=== PATIENT | male | born 1930 | race Caucasian/White ===

== ENCOUNTER 2017-10-27 10:15 | Observation (INO) | payer OTHER ==
[2017-10-27 10:42] VITALS: BMI 20.2
--- NOTE | 2017-10-27 10:56 | PDOC ---
History of Present Illness <Jodie Hensley - Last Filed: 10/27/17 13:45> - General History Source: Patient, Family Exam Limitations: No Limitations - History of Present Illness Initial Comments: 10/27/17 11:50 The patient is an 87 year old male with past medical history of hypertension, hyperlipidemia, COPD,CHF (on 2.5 L O2 at home PRN and BiPAP), CAD s/p pacemaker , and MT who presents to the ED with complaints of worsening right lower back pain and shortness of breath for the past 4 days. He reports that on he sat down hard into a chair and developed a pain in his right lower back a few hours later. Since then the pain has worsened and is present when he walks. He reports the pain to be sharp, a 2/10 at rest but an 8/10 with ambulation. He reports taking tylenol and icing/heating the area without receiving any relief. Last dose of Tylenol was at 6 am today. He denies any numbness or tingling in BLE. The patient also complains of worsening shortness of breath with ambulation over the past few days as well. He reports using his nebulizers more frequently as well. Denies any orthopnea. He was admitted last month to the hospital for pneumonia. The patient denies any associated chest pain or palpitations. He reports a mild cough but denies any fevers or chills. Denies any urinary complaints. PCP: Dr. Virginie Mckeon: Dr. Raygoza Cardiology: [facility]. Biggs [facility] - Last Filed: 10/27/17 13:58> - General Chief Complaint: Pain Stated Complaint: SOB. HIP, AND BACK PAIN Time Seen by Provider: 10/27/17 10:56 Past History - Past Medical History Cancer: Yes (melanoma removed on nose 2014) Cardiac Disorders: Yes (pacemaker, heart attack) COPD: Yes (02 DEPENDENT 2L PRN.) HTN: Yes Hypercholesterolemia: Yes Seizures: Yes Thyroid Disease: Yes (hypo) - Surgical History Cardiac Surgery: Yes (pacemaker insertion) - Suicide/Smoking/Psychosocial Hx Smoking History: Never smoked Have you smoked in the past 12 months: No Information on smoking cessation initiated: No Hx Alcohol Use: No Drug/Substance Use Hx: No Substance Use Type: None Hx Substance Use Treatment: No <Jodie Hensley - Last Filed: 10/27/17 13:45> <Yuridia Gutierrez - Last Filed: 10/27/17 13:58> - Past Medical History Allergies/Adverse Reactions: Allergies Allergy/AdvReac Type Severity Reaction Status Date / Time No Known Allergies Allergy Verified 10/27/17 10:24 Home Medications: Ambulatory Orders Albuterol 0.083% Nebulizer Jaz [Ventolin 0.083% Nebulizer Soln -] 1 neb NEB QID PRN 08/30/17 Albuterol Sulfate Inhaler - [Ventolin HFA Inhaler -] 2 inh PO Q4H PRN 08/30/17 Aspirin [Aspirin EC] 81 mg PO DAILY 08/30/17 Febuxostat [Uloric -] 40 mg PO DAILY 08/30/17 Fluticasone Propionate [Flovent Hfa] 110 mcg IH DAILY 08/30/17 Levothyroxine [Synthroid -] 25 mcg PO DAILY 08/30/17 Tiotropium [place] [Spiriva] 1 inh PO DAILY 08/30/17 levETIRAcetam [Keppra -] 500 mg PO HS 08/30/17 Ascorbic Acid [Vitamin C -] 500 mg PO DAILY tablet 09/13/17 Carvedilol [Coreg -] 6.25 mg PO BID tablet 09/13/17 Docusate Sodium [Colace -] 100 mg PO BID capsule 09/13/17 Ferrous Sulfate [Feosol] 325 mg PO BIDWM ud 09/13/17 Nitroglycerin Patch [Nitro-Dur Patch -] 0.1 mg TD DAILY patch.td24 09/13/17 Polyvinyl Alcohol [Artificial Tears] 1 drop OU TID PRN drops 09/13/17 Torsemide [Demadex -] 20 mg PO DAILY tablet 09/13/17 Ascorbic Acid [Vitamin C] 500 mg PO DAILY 10/27/17 Mirtazapine [Remeron -] 15 mg PO HS 10/27/17 Review of Systems - Review of Systems Able to Perform ROS?: Yes Comments:: 10/27/17 11:50 GENERAL/CONSTITUTIONAL: No fever or chills. No weakness. HEAD, EYES, EARS, NOSE AND THROAT: No change in vision. No ear pain or discharge. No sore throat. CARDIOVASCULAR: (+) shortness of breath. No chest pain. RESPIRATORY: No cough, wheezing, or hemoptysis. GASTROINTESTINAL: No nausea, vomiting, diarrhea or constipation. GENITOURINARY: No dysuria, frequency, or change in urination. MUSCULOSKELETAL: (+) Right lower back pain. No neck pain. SKIN: No rash NEUROLOGIC: No headache, vertigo, loss of consciousness, or change in strength/ sensation. ENDOCRINE: No increased thirst. No abnormal weight change. HEMATOLOGIC/LYMPHATIC: No anemia, easy bleeding, or history of blood clots. ALLERGIC/IMMUNOLOGIC: No hives or skin allergy. All Other Systems: Reviewed and Negative <MattYuridia - Last Filed: 10/27/17 13:58> *Physical Exam - Vital Signs Last Vital Signs Temp Pulse Resp BP Pulse Ox 97.5 F L 86 18 140/70 95 10/27/17 10:19 10/27/17 10:19 10/27/17 10:19 10/27/17 10:19 10/27/17 10:19 <Jodie Hensley - Last Filed: 10/27/17 13:45> - Vital Signs Last Vital Signs Temp Pulse Resp BP Pulse Ox 97.5 F L 86 18 140/70 96 10/27/17 10:19 10/27/17 10:19 10/27/17 10:19 10/27/17 10:19 10/27/17 11:26 - Physical Exam Comments: 10/27/17 11:51 GENERAL: Awake, alert, and fully oriented, in no acute distress HEAD: No signs of trauma EYES: PERRLA, EOMI, sclera anicteric, conjunctiva clear ENT: Auricles normal inspection, hearing grossly normal, nares patent, oropharynx clear without exudates. Moist mucosa NECK: Normal ROM, supple, no lymphadenopathy, JVD, or masses LUNGS: (+) Mildly tachypneic. Breath sounds equal, clear to auscultation bilaterally. No wheezes, and no crackles HEART: (+) Grade II/ holosystolic murmur best heard at the apex. Regular rate and rhythm, normal S1 and S2, no rubs or gallops ABDOMEN: Soft, nontender, normoactive bowel sounds. No guarding, no rebound. No masses EXTREMITIES: Normal range of motion, no edema. No clubbing or cyanosis. No cords, erythema, or tenderness NEUROLOGICAL: Cranial nerves II through XII grossly intact. Normal speech, normal gait SKIN: Warm, Dry, normal turgor, no rashes or lesions noted. <Yuridia Gutierrez - Last Filed: 10/27/17 13:58> ED Treatment Course - LABORATORY CBC & Chemistry Diagram: 10/27/17 12:10 10/27/17 12:10 <Jodie Hensley - Last Filed: 10/27/17 13:45> - LABORATORY CBC & Chemistry Diagram: 10/27/17 12:10 10/27/17 12:10 - RADIOLOGY Radiograph Interpretation: 10/27/17 13:53 Thoracic spine x-ray as reviewed by Dr. Arriola reports mild degenerative changes and minimal wedging. There is sclerotic unfolded aorta and multi lead pacemaker. Lumbar spine x-ray as reviewed by Dr. Arriola reports degenerative changes, narrowing at L5-S1 intervertebral disc space, and vascular calcifications. Chest x-ray as reviewed by Dr. Arriola reports decreased pulmonary and pleural changes since 09/06/17 <Yuridia Gutierrez - Last Filed: 10/27/17 13:58> Medical Decision Making - Medical Decision Making 10/27/17 13:04 Pt presents to the ED complaining of a 4 day history of atraumatic back pain. Also complaining of worsening of his chronic shortness of breath, accompanied by RAUSCH but not orthopnea. 1. back pain: unlikely fracture, but given age will check xrays of the back and lumbar spine. Will check UA. 2. Shortness of breath: differential includes COPD exacerbation, CHF exacerbation, ACS. Will check CXR, EKG, cardiac labs. Will treat with nebs and steroids. Will likely observe for continued treatment of COPD exacerbation and rule out ACS. <Jodie Hensley - Last Filed: 10/27/17 13:45> - Medical Decision Making 10/27/17 13:39 Phone call [address] to Dr. Madden, covering physician for Dr. Rachel. Case was discussed. Call placed to Dr. Aquino, covering physician for Dr. Biggs. Case was discussed. <Yuridia Gutierrez - Last Filed: 10/27/17 13:58> *DC/Admit/Observation/Transfer - Discharge Dispostion Admit: Yes <Jodie Hensley - Last Filed: 10/27/17 13:45> - Attestations Scribe Attestion: 10/27/17 11:53 Documentation prepared by Yuridia Gutierrez, acting as medical collector for Jodie Hensley MD. <Yuridia Gutierrez - Last Filed: 10/27/17 13:58> Diagnosis at time of Disposition: CHF (congestive heart failure) Qualifiers: Heart failure type: combined systolic and diastolic Heart failure chronicity: acute on chronic Qualified Code(s): I50.43 - Acute on chronic combined systolic (congestive) and diastolic (congestive) heart failure - Discharge Dispostion Condition at time of disposition: Good - Referrals Referrals: Ruddy Rachel MD [Primary Care Provider] - - Patient Instructions - Post Discharge Activity
[2017-10-27] MEDS ORDERED: predniSONE 20 MG TABLET (UD) PO ONE (11:46)
[2017-10-27] MEDS: ALBUTEROL SO4 2.5/IPRATROPIUM 0.5 INH SOL 3 ML VIAL.NEB. NEB SCH ×4 (12:01→12:58)
[2017-10-27] MEDS ORDERED: predniSONE 20 MG TABLET (UD) ONE (12:05)
[2017-10-27] MEDS ORDERED: ALBUTEROL SO4 2.5/IPRATROPIUM 0.5 INH SOL 3 ML VIAL.NEB. NEB ONE (12:05)
[2017-10-27 12:20] LABS: BASO % 0.9 % (0-2.0); EOS % 2.5 % (0-4.5); HEMATOCRIT 31.5 % (35.4-49); HEMOGLOBIN 10.6 GM/dL (11.7-16.9); LYMPH % 12.2 % (8-40); MCH 32.3 pg (25.7-33.7); MCHC 33.6 g/dl (32.0-35.9); MEAN CELL VOLUME 96.2 fl (80-96); MEAN PLT VOLUME 10.1 fl (7.5-11.1); MONO % 10.1 % (3.8-10.2); NEUT % 74.3 % (42.8-82.8); PLATELET COUNT 157 K/MM3 (134-434); RBC 3.28 M/mm3 (4.00-5.60); WHITE BLOOD COUNT 7.5 K/mm3 (4.0-10.0)
[2017-10-27 12:45] LABS: ALBUMIN 3.2 g/dl (3.4-5.0); ANION GAP 6 (8-16); BILIRUBIN,TOTAL 0.4 mg/dL (0.2-1.0); BLOOD UREA NITROGEN 35 mg/dL (7-18); CALCIUM 8.7 mg/dL (8.5-10.1); CHLORIDE 105 mmol/L (98-107); CO2 32 mmol/L (21-32); CREATININE 2.3 mg/dL (0.7-1.3); GLUCOSE,RANDOM 130 mg/dL (74-106); SGPT/ALT 12 U/L (12-78); SODIUM 143 mmol/L (136-145); TOT PROT 7.7 g/dl (6.4-8.2)
[2017-10-27 12:48] LABS: ALK PHOS 78 U/L (45-117); N-TERMINAL BNP 12843.76 pg/ml (5-450)
[2017-10-27 12:53] LABS: POTASSIUM 4.6 mmol/L (3.5-5.1); SGOT/AST 23 U/L (15-37)
[2017-10-27] MEDS ORDERED: FUROSEMIDE 40 MG/4 ML INJECTABLE VIAL IVPUSH ONE (13:42)
[2017-10-27] MEDS ORDERED: ARTIFICIAL TEARS (POLYVINYL ALCOHOL 1.4%) OPTH DROPS OU PRN (13:44)
[2017-10-27] MEDS ORDERED: ALBUTEROL SO4 18 GM HFA INHALER IH PRN (13:44)
[2017-10-27] MEDS ORDERED: ALBUTEROL SO4 0.083% IH SOL 2.5 MG/3 ML VIAL.NEB. NEB PRN (13:44)
[2017-10-27] MEDS ORDERED: ACETAMINOPHEN 1000 MG/100 ML VIAL (NON FORMULARY) IVPB ONE (13:52)
[2017-10-27] MEDS ORDERED: FUROSEMIDE 40 MG/4 ML INJECTABLE VIAL ONE (13:54)
--- NOTE | 2017-10-27 14:28 | EKG ---
Test Reason : Blood Pressure : / mmHG Vent. Rate : 082 BPM Atrial Rate : 079 BPM P-R Int : 000 ms QRS Dur : 142 ms QT Int : 426 ms P-R-T Axes : 000 -07 035 degrees QTc Int : 497 ms Ventricular-paced rhythm Biventricular pacemaker detected ABNORMAL ECG WHEN COMPARED WITH ECG OF 04-SEP-2017 00:05, VENT. RATE HAS DECREASED BY 10 BPM Confirmed by MD Mac, Karl ([id number]) on 10/27/2017 2:28:16 PM Referred By: Confirmed By:Karl Watts MD
[2017-10-27] MEDS ORDERED: morphine CARPU-JECT 2 MG/1 ML DISP.SYRIN IVPUSH ONE (14:54)
[2017-10-27] MEDS ORDERED: morphine SULFATE 4 MG/ML VIAL ONE ×2 (15:19→17:51)
[2017-10-27] MEDS ORDERED: morphine SULFATE 4 MG/ML VIAL IVPUSH ONE ×2 (16:52→18:05)
[2017-10-27] MEDS ORDERED: morphine CARPU-JECT 4 MG/1 ML DISP.SYRIN IVPUSH ONE (18:05)
[2017-10-27] MEDS: MOMETASONE FUROATE 220 MCG/IH INHALER IH SCH (22:33)
[2017-10-27] MEDS: DOCUSATE SODIUM 100 MG CAPSULE (FP) PO SCH (22:33)
[2017-10-27] MEDS: CARVEDILOL 6.25 MG TABLET (FP) PO SCH (22:33)
[2017-10-27] MEDS: levETIRAcetam 500 MG TABLET (FP) PO SCH (22:34)
[2017-10-27] MEDS: MIRTAZAPINE 15 MG TABLET (FP) PO SCH (22:34)
--- NOTE | 2017-10-27 23:57 | HP ---
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 - Past Medical History Cardiovascular: Yes: AFIB, HTN, Hyperlipdemia Renal/: Yes: Renal Inusuff Heme/Onc: Yes: Anemia Endocrine: Yes: Hypothyroidism - Past Surgical History Past Surgical History: Yes: Permanent Pacemaker - Smoking History Smoking history: Never smoked Have you smoked in the past 12 months: No - Alcohol/Substance Use Hx Alcohol Use: No Home Medications - Allergies Allergies/Adverse Reactions: Allergies Allergy/AdvReac Type Severity Reaction Status Date / Time thiopental Allergy Mild Verified 10/28/17 07:02 sodium pentothal Allergy Mild Uncoded 10/27/17 22:30 - Home Medications Home Medications: Ambulatory Orders Albuterol 0.083% Nebulizer Jaz [Ventolin 0.083% Nebulizer Soln -] 1 neb NEB QID PRN 08/30/17 Albuterol Sulfate Inhaler - [Ventolin HFA Inhaler -] 2 inh PO Q4H PRN 08/30/17 Aspirin [Aspirin EC] 81 mg PO DAILY 08/30/17 Febuxostat [Uloric -] 40 mg PO DAILY 08/30/17 Fluticasone Propionate [Flovent Hfa] 110 mcg IH DAILY 08/30/17 Levothyroxine [Synthroid -] 25 mcg PO DAILY 08/30/17 Tiotropium [place] [Spiriva] 1 inh PO DAILY 08/30/17 levETIRAcetam [Keppra -] 500 mg PO HS 08/30/17 Ascorbic Acid [Vitamin C -] 500 mg PO DAILY tablet 09/13/17 Carvedilol [Coreg -] 6.25 mg PO BID tablet 09/13/17 Docusate Sodium [Colace -] 100 mg PO BID capsule 09/13/17 Ferrous Sulfate [Feosol] 325 mg PO BIDWM ud 09/13/17 Nitroglycerin Patch [Nitro-Dur Patch -] 0.1 mg TD DAILY patch.td24 09/13/17 Polyvinyl Alcohol [Artificial Tears] 1 drop OU TID PRN drops 09/13/17 Torsemide [Demadex -] 20 mg PO DAILY tablet 09/13/17 Ascorbic Acid [Vitamin C] 500 mg PO DAILY 10/27/17 Mirtazapine [Remeron -] 15 mg PO HS 10/27/17 Family Disease History - Family Disease History Family History: Unremarkable Physical Examination Vital Signs: Vital Signs Temperature 97.4 F L 10/27/17 18:33 Pulse Rate 100 H 10/27/17 18:33 Respiratory Rate 28 H 10/27/17 18:33 Blood Pressure 155/105 10/27/17 18:33 O2 Sat by Pulse Oximetry (%) 93 L 10/27/17 18:33 Elderly man sick looking C/O Rt Gluteal area pain HEENT: Mm dry, mild anemia, PERRLA, EOMI NECK; JVD + CHEST: B/L Crepts CVS; S1S2 R ABD: No distention, non tender EXT: Alirio afeet + Rt Gluteal area tenderness [employer]: aler, non focal, no interval changes Labs: CBC, BMP 10/27/17 12:10 10/27/17 12:10 Imaging - Results X-ray: Report Reviewed (Hip no fractue Lumbar Spine: No fructure or Lytic lesion Thoracic spin no lytic lesion) EKG: Report Reviewed (Paced rhythma) Problem List - Problems (1) Heart failure, systolic, with acute decompensation Assessment/Plan: Present with worsening SOB and chest congestion, elevated BNP will resume all home meds possibly stress induced F/U cardiology recommondation, low salt diet Daily wt Code(s): I50.23 - ACUTE ON CHRONIC SYSTOLIC (CONGESTIVE) HEART FAILURE (2) Acute on chronic kidney failure Assessment/Plan: Base line CKD present with worsening renal function most likely due to Cardio renal syndrom Code(s): N17.9 - ACUTE KIDNEY FAILURE, UNSPECIFIED; N18.9 - CHRONIC KIDNEY DISEASE, UNSPECIFIED (3) HTN (hypertension) Assessment/Plan: Well controlled cont all home meds Code(s): I10 - ESSENTIAL (PRIMARY) HYPERTENSION Qualifiers: (4) Ischemic cardiomyopathy Assessment/Plan: chronic recent ECHO shows no chnage in EF Code(s): I25.5 - ISCHEMIC CARDIOMYOPATHY (5) Dehydration Assessment/Plan: recived IV Hydration in Ed F/U BMP and Code(s): E86.0 - DEHYDRATION (6) CAD (coronary artery disease) Code(s): I25.10 - ATHSCL HEART DISEASE OF [place] CORONARY ARTERY W/O ANG PCTRS Qualifiers: [place] vs. transplanted heart: three affiliated heart Associated angina: without angina (7) Sick sinus syndrome Assessment/Plan: S/PPacemaker intergayed during last Hospitalization Code(s): I49.5 - SICK SINUS SYNDROME (8) Hip pain, right Assessment/Plan: Cont Tylenol for pain no fracture Code(s): M25.551 - PAIN IN RIGHT HIP
[2017-10-28] MEDS ORDERED: PT OWN MED DRAWER 7, Y5N ONE ×3 (05:57→09:23)
[2017-10-28] MEDS: LEVOTHYROXINE NA 25 MCG TABLET (FP) PO SCH (06:04)
[2017-10-28 07:17] LABS: BASO % 0.1 % (0-2.0); HEMATOCRIT 32.9 % (35.4-49); HEMOGLOBIN 11.2 GM/dL (11.7-16.9); MCH 32.6 pg (25.7-33.7); MEAN CELL VOLUME 95.9 fl (80-96); MONO % 4.3 % (3.8-10.2); NEUT % 84.6 % (42.8-82.8); PLATELET COUNT 169 K/MM3 (134-434); RBC 3.43 M/mm3 (4.00-5.60); RDW 15.7 % (11.9-15.9); WHITE BLOOD COUNT 5.5 K/mm3 (4.0-10.0)
[2017-10-28 07:19] LABS: ALBUMIN 3.6 g/dl (3.4-5.0); ANION GAP 10 (8-16); BLOOD UREA NITROGEN 40 mg/dL (7-18); CALCIUM 9.3 mg/dL (8.5-10.1); CHLORIDE 99 mmol/L (98-107); CO2 33 mmol/L (21-32); GLUCOSE,RANDOM 134 mg/dL (74-106); POTASSIUM 4.8 mmol/L (3.5-5.1); SODIUM 142 mmol/L (136-145)
[2017-10-28 07:22] LABS: ALK PHOS 77 U/L (45-117); BILIRUBIN,TOTAL 0.5 mg/dL (0.2-1.0); CREATININE 2.4 mg/dL (0.7-1.3); SGOT/AST 20 U/L (15-37); SGPT/ALT 13 U/L (12-78); TOT PROT 8.1 g/dl (6.4-8.2)
[2017-10-28] MEDS ORDERED: morphine SULFATE 4 MG/ML VIAL ONE (09:40)
[2017-10-28] MEDS ORDERED: morphine CARPU-JECT 4 MG/1 ML DISP.SYRIN IVPB PRN (09:49)
--- NOTE | 2017-10-28 09:49 | CON.CARD ---
Consult Consult Specialty:: Cardiology - Past Medical History Cardio/Vascular: Yes: AFIB, HTN, Hyperlipdemia Renal/: Yes: Renal Inusuff Endocrine: Yes: Hypothyroidism - Past Surgical History Past Surgical History: Yes: Permanent Pacemaker - Alcohol/Substance Use Hx Alcohol Use: No - Smoking History Smoking history: Never smoked Have you smoked in the past 12 months: No If you are a former smoker, when did you quit?: 40 Years ago Home Medications - Allergies Allergies/Adverse Reactions: Allergies Allergy/AdvReac Type Severity Reaction Status Date / Time thiopental Allergy Mild Verified 10/28/17 07:02 sodium pentothal Allergy Mild Uncoded 10/27/17 22:30 - Home Medications Home Medications: Ambulatory Orders Albuterol 0.083% Nebulizer Jaz [Ventolin 0.083% Nebulizer Soln -] 1 neb NEB QID PRN 08/30/17 Albuterol Sulfate Inhaler - [Ventolin HFA Inhaler -] 2 inh PO Q4H PRN 08/30/17 Aspirin [Aspirin EC] 81 mg PO DAILY 08/30/17 Febuxostat [Uloric -] 40 mg PO DAILY 08/30/17 Fluticasone Propionate [Flovent Hfa] 110 mcg IH DAILY 08/30/17 Levothyroxine [Synthroid -] 25 mcg PO DAILY 08/30/17 Tiotropium [place] [Spiriva] 1 inh PO DAILY 08/30/17 levETIRAcetam [Keppra -] 500 mg PO HS 08/30/17 Ascorbic Acid [Vitamin C -] 500 mg PO DAILY tablet 09/13/17 Carvedilol [Coreg -] 6.25 mg PO BID tablet 09/13/17 Docusate Sodium [Colace -] 100 mg PO BID capsule 09/13/17 Ferrous Sulfate [Feosol] 325 mg PO BIDWM ud 09/13/17 Nitroglycerin Patch [Nitro-Dur Patch -] 0.1 mg TD DAILY patch.td24 09/13/17 Polyvinyl Alcohol [Artificial Tears] 1 drop OU TID PRN drops 09/13/17 Torsemide [Demadex -] 20 mg PO DAILY tablet 09/13/17 Ascorbic Acid [Vitamin C] 500 mg PO DAILY 10/27/17 Mirtazapine [Remeron -] 15 mg PO HS 05/06/18 Vital Signs: Vital Signs Temperature 97.7 F 10/28/17 06:00 Pulse Rate 91 H 10/28/17 06:00 Respiratory Rate 20 10/28/17 06:00 Blood Pressure 136/82 10/28/17 06:00 O2 Sat by Pulse Oximetry (%) 98 10/28/17 03:35 - Other Data Labs, Other Data: CBC, BMP 10/28/17 06:30 10/28/17 06:30 Troponin, BNP 10/27/17 10/27/17 12:10 18:10 Troponin I 0.02 D 0.02 B-Natriuretic Peptide 58369.76 H Troponin, BNP 10/27/17 10/27/17 12:10 18:10 Troponin I 0.02 D 0.02 B-Natriuretic Peptide 73564.76 H Assessment/Plan 08/05/2017 Moderately decreased LVEF 40-45%, pacer wire, severe LAE, mod eccentric MR, mild anterior MVP, mod-severe TR 1. Acute on chronic hypoxic, hypercapneic respiratory failure referable to 2. Acute on chronic LV systolic failure with subendocardial ischemia resolving 3. Acute on CKD referable to renal hypoperfusion improving 4. CAD post SD angina pectoris 5. Persistent atrial fibrillation [id number] score of 5 on no A/C 6. Sick sinus syndrome post PPM 7. Hypertension history, tends to be hypotensive at baseline on medical therapy 8. Hypercholesterolemia 9. Hypothyroidism 10. Advanced O2-dependent COPD/LLL pneumonia, RUL pulm nodule 11. Anemia/thrombocytopenia 12. Abnl LFTs downtrending PLAN: 1. Continue oral diuresis (Demadex 20 qd) with monitor diuretic response, renal function and electrolytes, O2 as needed to maintain saO2>90% 2. Continue Coreg 6.25 bid, resume Entresto 24/46 bid pending stabilization of renal function and resolution of hyperkalemia 3. Continue ASA 81 qd, although ideally should be A/C but high risk patient as deemed in the past, recurrent falls/thrombocytopenia 4. Completed empiric antibiotic course as per the ID service, trend LFTs, hold Lipitor until LFTs normalize 5. DVT prophylaxis, BD as needed, PT
[2017-10-28] MEDS ORDERED: PATIENT'S OWN MEDICATION (NON-FORMULARY) (Ascorbic Acid [Vitamin C] 500 MG) PO SCH (10:00)
[2017-10-28] MEDS ORDERED: PATIENT'S OWN MEDICATION (NON-FORMULARY) (Fluticasone Propionate [Flovent Hfa] 110 MCG) IH SCH (10:00)
[2017-10-28] MEDS ORDERED: ASCORBIC ACID 500 MG TABLET (FP) PO SCH (10:00)
[2017-10-28] MEDS ORDERED: oxyCODONE HCL 5 MG TABLET PO PRN (10:11)
--- NOTE | 2017-10-28 10:19 | PN ---
Progress Note, Physician Chief Complaint: Pt sitting in bed in no acute distress. continues to report severe left hip- sacral pain. reports he sat a little firmly on his back at home. denies any falls/trauma. Denies any worsening sob at the moment. On o2. Denies any chest pain, n/v/d - Current Medication List Current Medications: Active Medications Acetaminophen (Tylenol -) 650 mg PO Q6H PRN PRN Reason: PAIN LEVEL 1-5 Albuterol Sulfate (Ventolin 0.083% Nebulizer Soln -) 1 amp NEB Q6H PRN PRN Reason: sob Last Admin: 10/28/17 08:18 Dose: 1 amp Albuterol Sulfate (Ventolin Hfa Inhaler -) 2 puff IH Q4H PRN PRN Reason: sob Artificial Tears (Artificial Tears) 1 drop OU Q8H PRN PRN Reason: DRY EYES Ascorbic Acid (Vitamin C -) 500 mg PO DAILY [facility] Aspirin (Ecotrin -) 81 mg PO DAILY [facility] Carvedilol (Coreg -) 6.25 mg PO BID [facility] Last Admin: 10/27/17 22:33 Dose: 6.25 mg Docusate Sodium (Colace -) 100 mg PO BID [facility] Last Admin: 10/27/17 22:33 Dose: 100 mg Febuxostat (Uloric -) 40 mg PO DAILY [facility] Ferrous Sulfate (Feosol -) 325 mg PO BIDWM [facility] Levetiracetam (Keppra -) 500 mg PO [facility] Last Admin: 10/27/17 22:34 Dose: 500 mg Levothyroxine Sodium (Synthroid -) 25 mcg PO [facility] Last Admin: 10/28/17 06:04 Dose: 25 mcg Mirtazapine (Remeron -) 15 mg PO [facility] Last Admin: 10/27/17 22:34 Dose: 15 mg Mometasone Furoate (Asmanex 220mcg -) 1 puff IH [facility] Last Admin: 10/27/17 22:33 Dose: 220 mcg Nitroglycerin (Nitro-Dur Patch -) 0.1 mg TD DAILY [facility] Oxycodone HCl (Roxicodone -) 5 mg PO Q6H PRN PRN Reason: PAIN LEVEL 6-10 Polyethylene Glycol (Miralax (For Daily Use) -) 17 gm PO DAILY [facility] Senna (Senna -) 2 tab PO HS JOSE ALFREDO Tiotropium [place] (Spiriva -) 1 puff IH DAILY JOSE ALFREDO Torsemide (Demadex -) 20 mg PO DAILY JOSE ALFREDO - Objective Vital Signs: Vital Signs Temperature 97.7 F 10/28/17 06:00 Pulse Rate 91 H 10/28/17 06:00 Respiratory Rate 20 10/28/17 06:00 Blood Pressure 136/82 10/28/17 06:00 O2 Sat by Pulse Oximetry (%) 98 10/28/17 03:35 Constitutional: Yes: No Distress, Thin Cardiovascular: Yes: Regular Rate and Rhythm, Murmur Respiratory: Yes: Regular, Diminished, On Nasal O2, SOB (at baseline). No: Accessory Muscle Use, Tachypnea, Wheezes Gastrointestinal: Yes: WNL, Normal Bowel Sounds, Soft. No: Distention, Tenderness Genitourinary: Yes: WNL Edema: No Neurological: Yes: WNL, Alert, Oriented Psychiatric: Yes: WNL, Alert, Oriented Labs: CBC, BMP 10/28/17 06:30 10/28/17 06:30 Problem List - Problems (1) Left hip pain Code(s): M25.552 - PAIN IN LEFT HIP (2) Afib Code(s): I48.91 - UNSPECIFIED ATRIAL FIBRILLATION Qualifiers: Atrial fibrillation type: persistent Qualified Code(s): I48.1 - Persistent atrial fibrillation (3) Anemia Code(s): D64.9 - ANEMIA, UNSPECIFIED Qualifiers: Anemia type: unspecified type Qualified Code(s): D64.9 - Anemia, unspecified (4) CAD (coronary artery disease) Code(s): I25.10 - ATHSCL HEART DISEASE OF [place] CORONARY ARTERY W/O ANG PCTRS Qualifiers: [place] vs. transplanted heart: [place] heart Associated angina: without angina (5) CHF (congestive heart failure), NYHA class III Code(s): I50.9 - HEART FAILURE, UNSPECIFIED Qualifiers: Congestive heart failure type: combined Congestive heart failure chronicity : acute on chronic Qualified Code(s): I50.43 - Acute on chronic combined systolic (congestive) and diastolic (congestive) heart failure (6) CKD (chronic kidney disease) Code(s): N18.9 - CHRONIC KIDNEY DISEASE, UNSPECIFIED Qualifiers: Chronic kidney disease stage: stage 4 (severe) Qualified Code(s): N18.4 - Chronic kidney disease, stage 4 (severe) (7) COPD (chronic obstructive pulmonary disease) Code(s): J44.9 - CHRONIC OBSTRUCTIVE PULMONARY DISEASE, UNSPECIFIED Qualifiers: COPD type: emphysema (8) HTN (hypertension) Code(s): I10 - ESSENTIAL (PRIMARY) HYPERTENSION Qualifiers: (9) Hyperlipidemia Code(s): E78.5 - HYPERLIPIDEMIA, UNSPECIFIED (10) Hypothyroidism Code(s): E03.9 - HYPOTHYROIDISM, UNSPECIFIED Qualifiers: Hypothyroidism type: unspecified Qualified Code(s): E03.9 - Hypothyroidism , unspecified (11) Pacemaker Code(s): Z95.0 - PRESENCE OF CARDIAC PACEMAKER (12) Pulmonary nodule Code(s): R91.1 - SOLITARY PULMONARY NODULE (13) Sick sinus syndrome Code(s): I49.5 - SICK SINUS SYNDROME Assessment/Plan (1) Left hip pain Assessment/Plan: pt still reports increased left posterior sacral- hip pain lumbar/thoracic/hip xray without acute findings bowel regimen tylenol/roxicodone prn PT ordered ortho consulted Code(s): M25.552 - PAIN IN LEFT HIP (2) COPD (chronic obstructive pulmonary disease) Assessment/Plan: chronic home dependent on O2 pt reports increased sob upon ambulation secondary to left hip pain pulm consult appreciated Code(s): J44.9 - CHRONIC OBSTRUCTIVE PULMONARY DISEASE, UNSPECIFIED Qualifiers: COPD type: emphysema (3) CHF (congestive heart failure) Assessment/Plan: NYHA class 2, euvolemic does not appear to be in acute exacerbation congestive changes on chest xray- however better than prev admission continue torsemide cardiology following Code(s): I50.9 - HEART FAILURE, UNSPECIFIED Qualifiers: Heart failure type: combined systolic and diastolic Heart failure chronicity: chronic Qualified Code(s): I50.42 - Chronic combined systolic ( congestive) and diastolic (congestive) heart failure (4) Hypothyroidism Assessment/Plan: continue synthroid Code(s): E03.9 - HYPOTHYROIDISM, UNSPECIFIED Qualifiers: Hypothyroidism type: unspecified Qualified Code(s): E03.9 - Hypothyroidism , unspecified (5) CKD (chronic kidney disease) Assessment/Plan: at baseline monitor Code(s): N18.9 - CHRONIC KIDNEY DISEASE, UNSPECIFIED Qualifiers: Chronic kidney disease stage: stage 4 (severe) Qualified Code(s): N18.4 - Chronic kidney disease, stage 4 (severe) (6) Sick sinus syndrome Assessment/Plan: s/p PPM Code(s): I49.5 - SICK SINUS SYNDROME (7) CAD (coronary artery disease) Assessment/Plan: history of NM/angina s/p PPM cardiology following Code(s): I25.10 - ATHSCL HEART DISEASE OF [place] CORONARY ARTERY W/O ANG PCTRS Qualifiers: [place] vs. transplanted heart: [place] heart Associated angina: without angina (8) Afib Assessment/Plan: rate controlled continue carvedilol, Asa CHADvasc score 5, no AC Code(s): I48.91 - UNSPECIFIED ATRIAL FIBRILLATION Qualifiers: Atrial fibrillation type: persistent Qualified Code(s): I48.1 - Persistent atrial fibrillation (9) Anemia Assessment/Plan: secondary to ckd h/h stable Code(s): D64.9 - ANEMIA, UNSPECIFIED Qualifiers: Anemia type: unspecified type Qualified Code(s): D64.9 - Anemia, unspecified (10) HTN (hypertension) Assessment/Plan: controlled continue carvedilol Code(s): I10 - ESSENTIAL (PRIMARY) HYPERTENSION Qualifiers: Hypertension type: essential hypertension Qualified Code(s): I10 - Essential (primary) hypertension (11) Hyperlipidemia Assessment/Plan: continue lipitor Code(s): E78.5 - HYPERLIPIDEMIA, UNSPECIFIED (12) Pulmonary nodule Assessment/Plan: RUL nodule Code(s): R91.1 - SOLITARY PULMONARY NODULE Dispo: Home with services
[2017-10-28] MEDS: FERROUS SO4 325 MG TABLET (FP) PO SCH (10:20)
[2017-10-28] MEDS: DOCUSATE SODIUM 100 MG CAPSULE (FP) PO SCH ×2 (10:20→21:35)
[2017-10-28] MEDS: CARVEDILOL 6.25 MG TABLET (FP) PO SCH ×2 (10:20→21:35)
--- NOTE | 2017-10-28 10:34 | CON.CARD ---
Consult Consult Specialty:: Cardiology Referred by:: Pateint of Dr. Ruddy Rachel Reason for Consultation:: Cardiac evaluation - History of Present Illness Chief Complaint: Shortness of breath History of Present Illness: Patient is an 87 year old male well known to our service (sees Dr. Na Biggs) with underlying history of atrial fibrillation, CAD post LA, sick sinus syndrome post PPM, COPD on home O2, gout and class II-III NYHA classification LV systolic heart failure who presents with left hip pain and shortness of breath with exertion. He was recently in the hospital with dyspnea and generalized weakness. Currently he is awake and alert. He denies fever or chills. He denies chest pain or palpitations. He denies nausea, vomiting, diarrhea or abdominal pain. Denies headache or lightheadedness. He complained of shortness of breath on exertion and blood work reveals elevated BNP with usual elevation of creatinine. He was given IV Furosemide in the ED. He feel better this am. - History Source History Provided By: Patient, Medical Record Limitations to Obtaining History: No Limitations - Past Medical History Cardio/Vascular: Yes: AFIB, CAD, CHF, HTN, Hyperlipdemia, LA Pulmonary: Yes: COPD Renal/: Yes: Renal Inusuff Endocrine: Yes: Hypothyroidism - Past Surgical History Past Surgical History: Yes: Permanent Pacemaker - Alcohol/Substance Use Hx Alcohol Use: No - Smoking History Smoking history: Never smoked Have you smoked in the past 12 months: No If you are a former smoker, when did you quit?: 40 Years ago Home Medications - Allergies Allergies/Adverse Reactions: Allergies Allergy/AdvReac Type Severity Reaction Status Date / Time thiopental Allergy Mild Verified 10/28/17 07:02 sodium pentothal Allergy Mild Uncoded 10/27/17 22:30 - Home Medications Home Medications: Ambulatory Orders Albuterol 0.083% Nebulizer Jaz [Ventolin 0.083% Nebulizer Soln -] 1 neb NEB QID PRN 08/30/17 Albuterol Sulfate Inhaler - [Ventolin HFA Inhaler -] 2 inh PO Q4H PRN 08/30/17 Aspirin [Aspirin EC] 81 mg PO DAILY 08/30/17 Febuxostat [Uloric -] 40 mg PO DAILY 08/30/17 Fluticasone Propionate [Flovent Hfa] 110 mcg IH DAILY 08/30/17 Levothyroxine [Synthroid -] 25 mcg PO DAILY 08/30/17 Tiotropium [place] [Spiriva] 1 inh PO DAILY 08/30/17 levETIRAcetam [Keppra -] 500 mg PO HS 08/30/17 Ascorbic Acid [Vitamin C -] 500 mg PO DAILY tablet 09/13/17 Carvedilol [Coreg -] 6.25 mg PO BID tablet 09/13/17 Docusate Sodium [Colace -] 100 mg PO BID capsule 09/13/17 Ferrous Sulfate [Feosol] 325 mg PO BIDWM ud 09/13/17 Nitroglycerin Patch [Nitro-Dur Patch -] 0.1 mg TD DAILY patch.[id number] 09/13/17 Polyvinyl Alcohol [Artificial Tears] 1 drop OU TID PRN drops 09/13/17 Torsemide [Demadex -] 20 mg PO DAILY tablet 09/13/17 Ascorbic Acid [Vitamin C] 500 mg PO DAILY 10/27/17 Mirtazapine [Remeron -] 15 mg PO HS 10/27/17 Review of Systems - Review of Systems Constitutional: denies: Chills, Fever Cardiovascular: reports: Shortness of Breath. denies: Chest Pain, Palpitations Respiratory: reports: SOB, SOB on Exertion. denies: Cough, Hemoptysis, Orthopnea, PND, Wheezing Gastrointestinal: denies: Abdominal Pain, Constipation, Diarrhea, Melena, Nausea , Rectal Bleeding, Vomiting Neurological: reports: Weakness. denies: Dizziness, Headache, Seizure, Syncope , Unsteady Gait Vital Signs: Vital Signs Temperature 97.7 F 10/28/17 06:00 Pulse Rate 91 H 10/28/17 06:00 Respiratory Rate 20 10/28/17 06:00 Blood Pressure 136/82 10/28/17 06:00 O2 Sat by Pulse Oximetry (%) 98 10/28/17 03:35 HENT: Yes: Atraumatic Neck: Yes: Supple Respiratory: Yes: Diminished Gastrointestinal: Yes: Normal Bowel Sounds, Soft. No: Tenderness Cardiovascular: Yes: Pulse Irregular JVD: No Carotid Bruit: No PMI: Non-Displaced Heart Sounds: Yes: S1, S2. No: Gallop Murmur: Yes: Systolic Murmur, Grade 1 Edema: No - Other Data Labs, Other Data: CBC, BMP 10/28/17 06:30 05/07/18 06:30 Troponin, BNP 10/27/17 10/27/17 12:10 18:10 Troponin I 0.02 D 0.02 B-Natriuretic Peptide 74697.76 H Laboratory Results - last 24 hr 10/27/17 10/27/17 10/27/17 12:10 12:10 18:10 WBC 7.5 RBC 3.28 L Hgb 10.6 L D Hct 31.5 L MCV 96.2 H MCH 32.3 MCHC 33.6 RDW 16.0 H D Plt Count 157 MPV 10.1 Neutrophils % 74.3 Lymphocytes % 12.2 Monocytes % 10.1 Eosinophils % 2.5 Basophils % 0.9 Sodium 143 Potassium 4.6 Chloride 105 Carbon Dioxide 32 Anion Gap 6 L BUN 35 H D Creatinine 2.3 H Creat Clearance w eGFR 27.10 Random Glucose 130 H D Calcium 8.7 Total Bilirubin 0.4 D AST 23 D ALT 12 D Alkaline Phosphatase 78 Creatine Kinase 47 Troponin I 0.02 D 0.02 B-Natriuretic Peptide 61864.76 H Total Protein 7.7 Albumin 3.2 L 10/28/17 10/28/17 06:30 06:30 WBC 5.5 RBC 3.43 L Hgb 11.2 L Hct 32.9 L MCV 95.9 MCH 32.6 MCHC 34.0 RDW 15.7 Plt Count 169 MPV 10.0 Neutrophils % 84.6 H Lymphocytes % 11.0 Monocytes % 4.3 Eosinophils % 0.0 D Basophils % 0.1 Sodium 142 Potassium 4.8 Chloride 99 Carbon Dioxide 33 H Anion Gap 10 BUN 40 H Creatinine 2.4 H Creat Clearance w eGFR 25.80 Random Glucose 134 H Calcium 9.3 Total Bilirubin 0.5 D AST 20 ALT 13 Alkaline Phosphatase 77 Creatine Kinase Troponin I B-Natriuretic Peptide Total Protein 8.1 Albumin 3.6 Ventricular paced rhythm with underlying AF Imaging - Results Chest X-ray: Report Reviewed (Congestive changes with atelectasis) X-ray: Report Reviewed (Hip Xray no fractures) EKG: Report Reviewed Assessment/Plan 1. Shortness of breath with exertion with class II NYHA classification LV systolic heart failure 2. Left hip pain, musculoskeletal pain 3. Permanent atrial fibrillation 4. Sick sinus syndrome post PPM 5. CAD history of LA, angina pectoris 6. Hypertension 7. Hypercholesterolemia 8. Hypothyroidism 9. COPD 10. Anemia PLAN: 1. Continue Carvedilol as tolerated 2. Continue Torsemide and monitor I/Os, daily weight, renal function and electrolytes 3. Ambulate and PT 4. Follow up in office with Dr. Na Biggs Further plans are to follow Eliezer Aquino MD
[2017-10-28] MEDS: ASPIRIN COATED 81 MG TABLET.EC PO SCH (10:42)
[2017-10-28] MEDS: FEBUXOSTAT 40 MG TAB PO SCH (10:42)
[2017-10-28] MEDS: TORSEMIDE 20 MG TABLET (FP) PO SCH (10:42)
[2017-10-28] MEDS: ASCORBIC ACID 500 MG TABLET (FP) PO SCH (10:42)
[2017-10-28] MEDS: NITROGLYCERIN 0.1 MG/HOUR TD PATCH TD SCH (10:42)
[2017-10-28] MEDS: POLYETHYLENE GLYCOL 3350 119 GM BTL PO SCH (10:43)
[2017-10-28] MEDS: TIOTROPIUM BROMIDE 18 MCG CAPSULES IH SCH (10:43)
--- NOTE | 2017-10-28 11:33 | PN ---
Progress Note (short form) - Note Progress Note: PULMONARY CONSULTATION DICTATED 10/28/17 IMP ACUTE ON CHRONIC CHF ASHD S/P CO ADVANCE COPD O2 DEPENDENT WITH CHRONIC HYPOXEMIC RESPIRATORY FAILURE AFIB SSS S/P PPM LEFT HIP PAIN CKD ANEMIA PLAN DIURETICS INHALED BRONCHODILATORS O2 MONITOR LYTES STRICT I+OS ANALGESICS CONSIDER ORTHOPEDIC EVALUATION DR HINOJOSA Problem List - Problems (1) CHF (congestive heart failure) Code(s): I50.9 - HEART FAILURE, UNSPECIFIED Qualifiers: Heart failure type: combined systolic and diastolic Heart failure chronicity: acute on chronic Qualified Code(s): I50.43 - Acute on chronic combined systolic (congestive) and diastolic (congestive) heart failure (2) Hip pain, right Code(s): M25.551 - PAIN IN RIGHT HIP (3) Chronic hypoxemic respiratory failure Code(s): J96.11 - CHRONIC RESPIRATORY FAILURE WITH HYPOXIA (4) Acute on chronic kidney failure Code(s): N17.9 - ACUTE KIDNEY FAILURE, UNSPECIFIED; N18.9 - CHRONIC KIDNEY DISEASE, UNSPECIFIED (5) Afib Code(s): I48.91 - UNSPECIFIED ATRIAL FIBRILLATION Qualifiers: Atrial fibrillation type: persistent Qualified Code(s): I48.1 - Persistent atrial fibrillation (6) Anemia Code(s): D64.9 - ANEMIA, UNSPECIFIED Qualifiers: Anemia type: unspecified type Qualified Code(s): D64.9 - Anemia, unspecified (7) CAD (coronary artery disease) Code(s): I25.10 - ATHSCL HEART DISEASE OF [place] CORONARY ARTERY W/O ANG PCTRS Qualifiers: [place] vs. transplanted heart: [place] heart Associated angina: without angina (8) CHF (congestive heart failure), NYHA class III Code(s): I50.9 - HEART FAILURE, UNSPECIFIED Qualifiers: Congestive heart failure type: combined Congestive heart failure chronicity : acute on chronic Qualified Code(s): I50.43 - Acute on chronic combined systolic (congestive) and diastolic (congestive) heart failure (9) CKD (chronic kidney disease) Code(s): N18.9 - CHRONIC KIDNEY DISEASE, UNSPECIFIED Qualifiers: Chronic kidney disease stage: stage 4 (severe) Qualified Code(s): N18.4 - Chronic kidney disease, stage 4 (severe) (10) HTN (hypertension) Code(s): I10 - ESSENTIAL (PRIMARY) HYPERTENSION Qualifiers: (11) Pacemaker Code(s): Z95.0 - PRESENCE OF CARDIAC PACEMAKER (12) Sick sinus syndrome Code(s): I49.5 - SICK SINUS SYNDROME
--- NOTE | 2017-10-28 11:56 | CONS ---
DATE OF CONSULTATION: 10/28/2017 REFERRING PHYSICIAN: Ruddy Rachel MD HISTORY: The patient is an 87-year-old white male known to me from previous hospitalizations with past medical history of advanced COPD on home O2, history of ASHD status post NC, sick sinus syndrome, status post permanent pacemaker, permanent atrial fibrillation, gout, congestive heart failure admitted to [facility] with the complaint of increasing shortness of breath and left hip pain. The patient states he started developing hip pain 2 days prior to admission. He denied any recent trauma. Denied any recent falls. He states that the pain is more posterior. He states on the day of admission his pain continued to get worse at which time he presented to the emergency room. He also has been complaining of some increasing shortness of breath. He denied any chest pain, nausea, vomiting, or diaphoresis. He denied any fever or chills. Denied any hemoptysis. On admission, he was noted to have an elevated BNP of 12,000. It was thought that he had developed congestive heart failure. He was started on IV Lasix and transferred up to the telemetry unit for further management. The patient has a history of tobacco use. Quit greater than 43 years ago. 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 Denies any hemoptysis. He denies any chest pains. PAST MEDICAL HISTORY: Again includes ASHD status post NC, atrial fibrillation, sick sinus syndrome status post permanent pacemaker, COPD on home O2, gout, left ventricular systolic heart failure. REVIEW OF SYSTEMS: Positive for shortness of breath. Positive for cough, yellowish sputum. No chest pain, no palpitations. Positive left hip. No lower extremity edema. CURRENT MEDICATIONS: Include Tylenol, Asmanex, Keppra, Remeron, Uloric, Spiriva, albuterol, Ventolin, HFA, Coreg, Colace, MiraLAX, Senna, Demadex, Feosol, nitroglycerin, Ecotrin, Roxicodone, Synthroid, vitamin C. PHYSICAL EXAMINATION: General: The patient is an elderly white male thin, well-developed, awake, alert in no acute distress. Vital Signs: He is currently afebrile. Blood pressure is 136/82, respiratory rate 20, heart rate 91. HEENT: Normocephalic and atraumatic. Neck: Supple. Heart: Irregular with S1, S2. Chest: Bibasilar crackles. Abdomen: Soft. Bowel sounds positive. Extremities: No cyanosis or edema. LABORATORIES: BUN 40, creatinine 2.4. BNP 12,843. WBCs 5.5, hemoglobin 11.2, hematocrit 32.9 with platelet count of 169,000. Chest x-ray: Mild pulmonary congestion, minimal fluid and atelectasis in the right costophrenic angle. IMPRESSION: 1. Acute on chronic congestive heart failure. 2. Atrial fibrillation. 3. Chronic obstructive pulmonary disease, chronic hypoxemic respiratory failure on home O2. 4. Atrial fibrillation. 5. Sick sinus syndrome status post permanent pacemaker. 6. Arteriosclerotic heart disease status post myocardial infarction. PLAN: Continued inhaled bronchodilators, diuretics, supplemental O2, analgesics. Consider orthopaedic evaluation if the patient's hip pain persists. Follow up chest x-ray and daily weights and strict inputs and outputs. CHRISTOPHER HINOJOSA M.D. [id number]
--- NOTE | 2017-10-28 15:36 | CONSULT ---
Consult - text type - Consultation Consultation Note: FULL CONSULT DICTATED IMP: LEFT HIP PAIN WITH NO ACUTE FINDINGS TODAY PLAN; OOB, PT-WBAT,NSAIDS
[2017-10-28] MEDS: LIDOCAINE 5% TOPICAL PATCH TP SCH (16:41)
[2017-10-28 18:33] LABS: URINE APPEARANCE CLEAR; URINE BILIRUBIN NEGATIVE (<2.0 mg/dL); URINE COLOR LTYELLOW; URINE GLUCOSE (UA) NEGATIVE (NEGATIVE); URINE KETONE NEGATIVE (NEGATIVE); URINE LEUK ESTERASE NEGATIVE (NEGATIVE); URINE NITRITE NEGATIVE (NEGATIVE); URINE PROTEIN NEGATIVE (NEGATIVE); URINE UROBILINOGEN NEGATIVE mg/dL (0.2-1.0)
[2017-10-28] MEDS: oxyCODONE HCL 5 MG TABLET PO PRN (18:41)
--- NOTE | 2017-10-28 19:19 | CONS ---
ORTHOPEDIC CONSULTATION/[facility] DATE OF CONSULTATION: 10/28/2017 Patient is an 87-year-old male admitted for cardiac reasons, complaining of pain in his left hip. He gives questionable a hard landing into a hard chair a few days ago when he started having pain in his buttock that brought him to the emergency room. When he was in the hospital, they found that he had cardiac issues and admitted him, but he is still complaining of pain in his left hip. Today, however, he says he has no pain. PHYSICAL EXAMINATION: He has equal limb lengths, full range of motion in the ankles and toes, 5/5 pulses. Reflexes intact. Sensation throughout. Positive straight leg raise ability and no increased pain with passive range of motion. No tenderness in the midline or paraspinal as in the lower lumbar region. X-rays which I reviewed of his hip and thoracic and lumbar spine are essentially normal with just some degenerative changes in his lumbar spine, and his hip x-rays are otherwise normal. IMPRESSION: Left hip pain but no specific etiology at this time. It seems to be that he is resolving his symptoms. PLAN: Out of bed, weightbearing as tolerated, physical therapy, nonsteroidals. If persisting pain, down the line, we could always order a CAT scan/MRI if necessary. CHARLI RUSSELL M.D. [id number]
[2017-10-28] MEDS ORDERED: oxyCODONE HCL 5 MG TABLET PO ONE (21:00)
[2017-10-28] MEDS: SENNOSIDES 8.6MG TABLET (FP) PO SCH (21:35)
[2017-10-28] MEDS: levETIRAcetam 500 MG TABLET (FP) PO SCH (21:36)
[2017-10-28] MEDS: MIRTAZAPINE 15 MG TABLET (FP) PO SCH (21:36)
[2017-10-28] MEDS: MOMETASONE FUROATE 220 MCG/IH INHALER IH SCH (21:40)
[2017-10-28] MEDS: LIDOCAINE PATCH REMOVAL MC SCH (21:41)
[2017-10-29] MEDS: oxyCODONE HCL 5 MG TABLET PO PRN ×3 (03:06→21:20)
[2017-10-29] MEDS: ACETAMINOPHEN 325 MG TABLET (FP) PO PRN ×2 (06:19→13:12)
[2017-10-29] MEDS: LEVOTHYROXINE NA 25 MCG TABLET (FP) PO SCH (06:19)
[2017-10-29 07:33] LABS: BASO % 0.5 % (0-2.0); HEMATOCRIT 29.2 % (35.4-49); HEMOGLOBIN 9.9 GM/dL (11.7-16.9); LYMPH % 13.2 % (8-40); MCH 32.7 pg (25.7-33.7); MEAN CELL VOLUME 96.3 fl (80-96); MEAN PLT VOLUME 9.7 fl (7.5-11.1); NEUT % 75.3 % (42.8-82.8); PLATELET COUNT 132 K/MM3 (134-434); RBC 3.03 M/mm3 (4.00-5.60); RDW 15.9 % (11.9-15.9); WHITE BLOOD COUNT 7.9 K/mm3 (4.0-10.0)
[2017-10-29 07:51] LABS: ANION GAP 4 (8-16); BLOOD UREA NITROGEN 49 mg/dL (7-18); CALCIUM 8.5 mg/dL (8.5-10.1); CHLORIDE 101 mmol/L (98-107); CO2 35 mmol/L (21-32); CREATININE 2.4 mg/dL (0.7-1.3); GLUCOSE,RANDOM 81 mg/dL (74-106); MAGNESIUM 2.1 mg/dL (1.8-2.4); POTASSIUM 4.3 mmol/L (3.5-5.1); SODIUM 140 mmol/L (136-145)
[2017-10-29 07:54] LABS: N-TERMINAL BNP 20354.41 pg/ml (5-450)
[2017-10-29] MEDS: CARVEDILOL 6.25 MG TABLET (FP) PO SCH (09:21)
[2017-10-29] MEDS: FERROUS SO4 325 MG TABLET (FP) PO SCH ×2 (09:21→17:17)
[2017-10-29] MEDS: TORSEMIDE 20 MG TABLET (FP) PO SCH (09:21)
[2017-10-29] MEDS: ASCORBIC ACID 500 MG TABLET (FP) PO SCH (09:21)
[2017-10-29] MEDS: DOCUSATE SODIUM 100 MG CAPSULE (FP) PO SCH ×2 (09:21→21:19)
[2017-10-29] MEDS: ASPIRIN COATED 81 MG TABLET.EC PO SCH (09:21)
[2017-10-29] MEDS: TIOTROPIUM BROMIDE 18 MCG CAPSULES IH SCH (09:22)
[2017-10-29] MEDS: POLYETHYLENE GLYCOL 3350 119 GM BTL PO SCH (09:23)
[2017-10-29] MEDS: LIDOCAINE 5% TOPICAL PATCH TP SCH (09:23)
[2017-10-29] MEDS: NITROGLYCERIN 0.1 MG/HOUR TD PATCH TD SCH ×2 (09:24→09:33)
[2017-10-29] MEDS: FEBUXOSTAT 40 MG TAB PO SCH (09:24)
--- NOTE | 2017-10-29 10:14 | PN ---
Progress Note, Physician History of Present Illness: PULMONARY ALERT,LESS DYSPNEIC,+ C/O LEFT HIP PAIN - Current Medication List Current Medications: Active Medications Acetaminophen (Tylenol -) 650 mg PO Q6H PRN PRN Reason: PAIN LEVEL 1-5 Last Admin: 10/29/17 06:19 Dose: 650 mg Albuterol Sulfate (Ventolin 0.083% Nebulizer Soln -) 1 amp NEB Q6H PRN PRN Reason: sob Last Admin: 10/28/17 08:18 Dose: 1 amp Albuterol Sulfate (Ventolin Hfa Inhaler -) 2 puff IH Q4H PRN PRN Reason: sob Artificial Tears (Artificial Tears) 1 drop OU Q8H PRN PRN Reason: DRY EYES Ascorbic Acid (Vitamin C -) 500 mg PO DAILY [facility] Last Admin: 10/29/17 09:21 Dose: 500 mg Aspirin (Ecotrin -) 81 mg PO DAILY [facility] Last Admin: 10/29/17 09:21 Dose: 81 mg Carvedilol (Coreg -) 6.25 mg PO BID [facility] Last Admin: 10/29/17 09:21 Dose: 6.25 mg Docusate Sodium (Colace -) 100 mg PO BID [facility] Last Admin: 10/29/17 09:21 Dose: 100 mg Febuxostat (Uloric -) 40 mg PO DAILY [facility] Last Admin: 10/29/17 09:24 Dose: 40 mg Ferrous Sulfate (Feosol -) 325 mg PO BIDWM [facility] Last Admin: 10/29/17 09:21 Dose: 325 mg Levetiracetam (Keppra -) 500 mg PO HS [facility] Last Admin: 10/28/17 21:36 Dose: 500 mg Levothyroxine Sodium (Synthroid -) 25 mcg PO ACBK [facility] Last Admin: 10/29/17 06:19 Dose: 25 mcg Lidocaine (Lidoderm Patch -) 1 patch TP DAILY [facility] Last Admin: 10/29/17 09:23 Dose: 1 patch Mirtazapine (Remeron -) 15 mg PO HS [facility] Last Admin: 10/28/17 21:36 Dose: 15 mg Miscellaneous (Lidoderm Patch Removal) 1 each MC DAILY@2200 [facility] Last Admin: 10/28/17 21:41 Dose: 1 each Mometasone Furoate (Asmanex 220mcg -) 1 puff IH HS [facility] Last Admin: 10/28/17 21:40 Dose: 1 puff Nitroglycerin (Nitro-Dur Patch -) 0.1 mg TD DAILY [facility] Last Admin: 10/29/17 09:33 Dose: Not Given Oxycodone HCl (Roxicodone -) 2.5 mg PO Q6H PRN PRN Reason: PAIN LEVEL 6-10 Last Admin: 10/29/17 09:22 Dose: 2.5 mg Polyethylene Glycol (Miralax (For Daily Use) -) 17 gm PO DAILY [facility] Last Admin: 10/29/17 09:23 Dose: 17 gm Senna (Senna -) 2 tab PO HS [facility] Last Admin: 10/28/17 21:35 Dose: 2 tab Tiotropium [place] (Spiriva -) 1 puff IH DAILY [facility] Last Admin: 10/29/17 09:22 Dose: 1 puff Torsemide (Demadex -) 20 mg PO DAILY [facility] Last Admin: 10/29/17 09:21 Dose: 20 mg - Objective Vital Signs: Vital Signs Temperature 98 F 10/29/17 08:36 Pulse Rate 92 H 10/29/17 08:36 Respiratory Rate 18 10/29/17 08:36 Blood Pressure 132/75 10/29/17 08:36 O2 Sat by Pulse Oximetry (%) 98 10/28/17 22:00 Constitutional: Yes: Well Nourished, Calm Eyes: Yes: WNL HENT: Yes: WNL Neck: Yes: WNL Cardiovascular: Yes: Pulse Irregular, S1, S2 Respiratory: Yes: Rales (BIBASILAR CRACKLES) Gastrointestinal: Yes: Normal Bowel Sounds, Soft Extremities: Yes: WNL Edema: No Labs: CBC, BMP 10/29/17 07:10 10/29/17 07:10 Problem List - Problems (1) CHF (congestive heart failure) Code(s): I50.9 - HEART FAILURE, UNSPECIFIED Qualifiers: Heart failure type: combined systolic and diastolic Heart failure chronicity: acute on chronic Qualified Code(s): I50.43 - Acute on chronic combined systolic (congestive) and diastolic (congestive) heart failure (2) Hip pain, right Code(s): M25.551 - PAIN IN RIGHT HIP (3) Chronic hypoxemic respiratory failure Code(s): J96.11 - CHRONIC RESPIRATORY FAILURE WITH HYPOXIA (4) Acute on chronic kidney failure Code(s): N17.9 - ACUTE KIDNEY FAILURE, UNSPECIFIED; N18.9 - CHRONIC KIDNEY DISEASE, UNSPECIFIED (5) Afib Code(s): I48.91 - UNSPECIFIED ATRIAL FIBRILLATION Qualifiers: Atrial fibrillation type: persistent Qualified Code(s): I48.1 - Persistent atrial fibrillation (6) Anemia Code(s): D64.9 - ANEMIA, UNSPECIFIED Qualifiers: Anemia type: unspecified type Qualified Code(s): D64.9 - Anemia, unspecified (7) CAD (coronary artery disease) Code(s): I25.10 - ATHSCL HEART DISEASE OF [place] CORONARY ARTERY W/O ANG PCTRS Qualifiers: [place] vs. transplanted heart: [place] heart Associated angina: without angina (8) CHF (congestive heart failure), NYHA class III Code(s): I50.9 - HEART FAILURE, UNSPECIFIED Qualifiers: Congestive heart failure type: combined Congestive heart failure chronicity : acute on chronic Qualified Code(s): I50.43 - Acute on chronic combined systolic (congestive) and diastolic (congestive) heart failure (9) CKD (chronic kidney disease) Code(s): N18.9 - CHRONIC KIDNEY DISEASE, UNSPECIFIED Qualifiers: Chronic kidney disease stage: stage 4 (severe) Qualified Code(s): N18.4 - Chronic kidney disease, stage 4 (severe) (10) HTN (hypertension) Code(s): I10 - ESSENTIAL (PRIMARY) HYPERTENSION Qualifiers: (11) Pacemaker Code(s): Z95.0 - PRESENCE OF CARDIAC PACEMAKER (12) Sick sinus syndrome Code(s): I49.5 - SICK SINUS SYNDROME Assessment/Plan IMP ACUTE ON CHRONIC CHF ASHD S/P [place] ADVANCE COPD O2 DEPENDENT WITH CHRONIC HYPOXEMIC RESPIRATORY FAILURE AFIB SSS S/P PPM LEFT HIP PAIN CKD ANEMIA PLAN INHALED BRONCHODILATORS O2 MONITOR LYTES,RENAL FUNCTION STRICT I+OS ANALGESICS CT HIP DR HINOJOSA Problem List - Problems (1) CHF (congestive heart failure) Code(s): I50.9 - HEART FAILURE, UNSPECIFIED Qualifiers: Heart failure type: combined systolic and diastolic Heart failure chronicity: acute on chronic Qualified Code(s): I50.43 - Acute on chronic combined systolic (congestive) and diastolic (congestive) heart failure (2) Hip pain, right Code(s): M25.551 - PAIN IN RIGHT HIP (3) Chronic hypoxemic respiratory failure Code(s): J96.11 - CHRONIC RESPIRATORY FAILURE WITH HYPOXIA (4) Acute on chronic kidney failure Code(s): N17.9 - ACUTE KIDNEY FAILURE, UNSPECIFIED; N18.9 - CHRONIC KIDNEY DISEASE, UNSPECIFIED (5) Afib Code(s): I48.91 - UNSPECIFIED ATRIAL FIBRILLATION Qualifiers: Atrial fibrillation type: persistent Qualified Code(s): I48.1 - Persistent atrial fibrillation (6) Anemia Code(s): D64.9 - ANEMIA, UNSPECIFIED Qualifiers: Anemia type: unspecified type Qualified Code(s): D64.9 - Anemia, unspecified (7) CAD (coronary artery disease) Code(s): I25.10 - ATHSCL HEART DISEASE OF [place] CORONARY ARTERY W/O ANG PCTRS Qualifiers: [place] vs. transplanted heart: [place] heart Associated angina: without angina (8) CHF (congestive heart failure), NYHA class III Code(s): I50.9 - HEART FAILURE, UNSPECIFIED Qualifiers: Congestive heart failure type: combined Congestive heart failure chronicity : acute on chronic Qualified Code(s): I50.43 - Acute on chronic combined systolic (congestive) and diastolic (congestive) heart failure (9) CKD (chronic kidney disease) Code(s): N18.9 - CHRONIC KIDNEY DISEASE, UNSPECIFIED Qualifiers: Chronic kidney disease stage: stage 4 (severe) Qualified Code(s): N18.4 - Chronic kidney disease, stage 4 (severe) (10) HTN (hypertension) Code(s): I10 - ESSENTIAL (PRIMARY) HYPERTENSION Qualifiers: (11) Pacemaker Code(s): Z95.0 - PRESENCE OF CARDIAC PACEMAKER (12) Sick sinus syndrome Code(s): I49.5 - SICK SINUS SYNDROME
--- NOTE | 2017-10-29 11:22 | PN ---
Progress Note (short form) - Note Progress Note: Chief Complaint: Events noted, notes reviewed, continues to report persistence of left hip discomfort, denies any chest pain but continues to report persistence of dyspnea with minimal physical activity History of Present Illness: Seen and examined on telemetry. 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, moderate to severe TR with RVSP of 50 mmHg, bi-atrial dilatation Medications: Current Medications Acetaminophen (Tylenol -) 650 mg PO Q6H PRN PRN Reason: PAIN LEVEL 1-5 Last Admin: 10/29/17 06:19 Dose: 650 mg Albuterol Sulfate (Ventolin 0.083% Nebulizer Soln -) 1 amp NEB Q6H PRN PRN Reason: sob Last Admin: 10/28/17 08:18 Dose: 1 amp Albuterol Sulfate (Ventolin Hfa Inhaler -) 2 puff IH Q4H PRN PRN Reason: sob Artificial Tears (Artificial Tears) 1 drop OU Q8H PRN PRN Reason: DRY EYES Ascorbic Acid (Vitamin C -) 500 mg PO DAILY [facility] Last Admin: 10/29/17 09:21 Dose: 500 mg Aspirin (Ecotrin -) 81 mg PO DAILY [facility] Last Admin: 10/29/17 09:21 Dose: 81 mg Carvedilol (Coreg -) 6.25 mg PO BID [facility] Last Admin: 10/29/17 09:21 Dose: 6.25 mg Docusate Sodium (Colace -) 100 mg PO BID [facility] Last Admin: 10/29/17 09:21 Dose: 100 mg Febuxostat (Uloric -) 40 mg PO DAILY [facility] Last Admin: 10/29/17 09:24 Dose: 40 mg Ferrous Sulfate (Feosol -) 325 mg PO BIDWM [facility] Last Admin: 10/29/17 09:21 Dose: 325 mg Levetiracetam (Keppra -) 500 mg PO HS [facility] Last Admin: 10/28/17 21:36 Dose: 500 mg Levothyroxine Sodium (Synthroid -) 25 mcg PO ACBK [facility] Last Admin: 10/29/17 06:19 Dose: 25 mcg Lidocaine (Lidoderm Patch -) 1 patch TP DAILY [facility] Last Admin: 10/29/17 09:23 Dose: 1 patch Mirtazapine (Remeron -) 15 mg PO [facility] Last Admin: 10/28/17 21:36 Dose: 15 mg Miscellaneous (Lidoderm Patch Removal) 1 each MC DAILY@2200 [facility] Last Admin: 10/28/17 21:41 Dose: 1 each Mometasone Furoate (Asmanex 220mcg -) 1 puff IH [facility] Last Admin: 10/28/17 21:40 Dose: 1 puff Nitroglycerin (Nitro-Dur Patch -) 0.1 mg TD DAILY [facility] Last Admin: 10/29/17 09:33 Dose: Not Given Oxycodone HCl (Roxicodone -) 2.5 mg PO Q6H PRN PRN Reason: PAIN LEVEL 6-10 Last Admin: 10/29/17 09:22 Dose: 2.5 mg Polyethylene Glycol (Miralax (For Daily Use) -) 17 gm PO DAILY [facility] Last Admin: 10/29/17 09:23 Dose: 17 gm Senna (Senna -) 2 tab PO [facility] Last Admin: 10/28/17 21:35 Dose: 2 tab Tiotropium [place] (Spiriva -) 1 puff IH DAILY [facility] Last Admin: 10/29/17 09:22 Dose: 1 puff Torsemide (Demadex -) 20 mg PO DAILY [facility] Last Admin: 10/29/17 09:21 Dose: 20 mg Review of Systems Cardiovascular: As noted above Respiratory: denies: Cough or Sputum Production Gastrointestinal: denies: Nausea, Vomiting, Diarrhea, Constipation or Abdominal Discomfort Musculoskeletal: As noted above Endocrine: No Symptoms Reported Vital Signs: Last Vital Signs Temp Pulse Resp BP Pulse Ox 98 F 92 H 18 132/75 100 10/29/17 08:36 10/29/17 08:36 10/29/17 08:36 10/29/17 08:36 10/29/17 08:00 Intake & Output 10/26/17 10/27/17 10/28/17 10/29/17 23:59 23:59 23:59 23:59 Intake Total 450 240 Balance 450 240 Weight 137 lb 138 lb 8 oz Constitutional: No Distress, Calm, Thin Neck: Supple Negative JVD No Bruit Respiratory: Diminished Breath Sounds at the Bases Cardiovascular: S1 S2 Irregularly Irregular Grade 2/6 SM Gastrointestinal: Soft Benign Normal Bowel Sounds Ext: negative Edema Labs: CBC, BMP 10/29/17 07:10 10/29/17 07:10 Assessment/Plan ASSESSMENT: 1. Left hip discomfort etiology remains unclear 2. CAD post [place] angina pectoris 3. Systolic/diastolic LV dysfunction with chronic class II NYHA classification LV failure, resolving 4. Persistent atrial fibrillation [id number] score of 5 on no A/C therapy 5. Sick sinus syndrome post SOFTWARE QUALITY TESTER-D 6. Hypertension history, tends to be hypotensive at baseline on medical therapy 7. Hypercholesterolemia 8. Hypothyroidism 9. COPD/pneumonia 10. CKD 11. Anemia/thrombocytopenia PLAN: 1. Continue Coreg 2. Resume Enresto with close monitoring of renal function, once renal function stabilizes unless it is absolutely contraindicated 3. Continue ASA, although ideally should be A/C but high risk patient as deemed in the past, recurrent falls/thrombocytopenia 4. D/C topical nitrates, no clear indications 5. Continue Lipitor 6. Continue Demadex 7. Evaluation of left hip discomfort as planned [facility]
--- NOTE | 2017-10-29 13:13 | PN ---
Progress Note, Physician Chief Complaint: While in front of the door, observed pt getting OOB independently and standing to use urinal without any issues. As I walked in, pt sat back down and reported he is having severe 10/10 left sacral/hip pain which has not gotten better since being here. He reports he sat hard on a chair 1 week ago and then pain started few days later and has been worsening. He reports no relief with medications and reports pain is constant and without improvement. Otherwise, denies chest pain, worsening sob, n/v/d - Current Medication List Current Medications: Active Medications Acetaminophen (Tylenol -) 650 mg PO Q6H PRN PRN Reason: PAIN LEVEL 1-5 Last Admin: 10/29/17 06:19 Dose: 650 mg Albuterol Sulfate (Ventolin 0.083% Nebulizer Soln -) 1 amp NEB Q6H PRN PRN Reason: sob Last Admin: 10/28/17 08:18 Dose: 1 amp Albuterol Sulfate (Ventolin Hfa Inhaler -) 2 puff IH Q4H PRN PRN Reason: sob Alprazolam (Xanax -) 0.25 mg PO DAILY PRN PRN Reason: ANXIETY Artificial Tears (Artificial Tears) 1 drop OU Q8H PRN PRN Reason: DRY EYES Ascorbic Acid (Vitamin C -) 500 mg PO DAILY [facility] Last Admin: 10/29/17 09:21 Dose: 500 mg Aspirin (Ecotrin -) 81 mg PO DAILY [facility] Last Admin: 10/29/17 09:21 Dose: 81 mg Atorvastatin Calcium (Lipitor -) 10 mg PO [facility] Carvedilol (Coreg -) 12.5 mg PO BID [facility] Docusate Sodium (Colace -) 100 mg PO BID [facility] Last Admin: 10/29/17 09:21 Dose: 100 mg Febuxostat (Uloric -) 40 mg PO DAILY [facility] Last Admin: 10/29/17 09:24 Dose: 40 mg Ferrous Sulfate (Feosol -) 325 mg PO BIDWM [facility] Last Admin: 10/29/17 09:21 Dose: 325 mg Levetiracetam (Keppra -) 500 mg PO HS [facility] Last Admin: 10/28/17 21:36 Dose: 500 mg Levothyroxine Sodium (Synthroid -) 25 mcg PO ACBK [facility] Last Admin: 10/29/17 06:19 Dose: 25 mcg Lidocaine (Lidoderm Patch -) 1 patch TP DAILY [facility] Last Admin: 10/29/17 09:23 Dose: 1 patch Mirtazapine (Remeron -) 15 mg PO HS [facility] Last Admin: 10/28/17 21:36 Dose: 15 mg Miscellaneous (Lidoderm Patch Removal) 1 each MC DAILY@2200 [facility] Last Admin: 10/28/17 21:41 Dose: 1 each Mometasone Furoate (Asmanex 220mcg -) 1 puff IH [facility] Last Admin: 10/28/17 21:40 Dose: 1 puff Oxycodone HCl (Roxicodone -) 2.5 mg PO Q6H PRN PRN Reason: PAIN LEVEL 6-10 Last Admin: 10/29/17 09:22 Dose: 2.5 mg Polyethylene Glycol (Miralax (For Daily Use) -) 17 gm PO DAILY [facility] Last Admin: 10/29/17 09:23 Dose: 17 gm Sacubitril/Valsartan (Entresto 24 Mg-26 Mg Tablet) 1 tab PO BID [facility] Senna (Senna -) 2 tab PO HS [facility] Last Admin: 10/28/17 21:35 Dose: 2 tab Tiotropium [place] (Spiriva -) 1 puff IH DAILY [facility] Last Admin: 10/29/17 09:22 Dose: 1 puff - Objective Vital Signs: Vital Signs Temperature 98 F 10/29/17 08:36 Pulse Rate 92 H 10/29/17 08:36 Respiratory Rate 18 10/29/17 08:36 Blood Pressure 132/75 10/29/17 08:36 O2 Sat by Pulse Oximetry (%) 100 10/29/17 08:00 Constitutional: Yes: Well Nourished, No Distress, Calm Cardiovascular: Yes: Pulse Irregular, Murmur Respiratory: Yes: WNL, Regular, CTA Bilaterally, Diminished, On Nasal O2, SOB on Exertion. No: Accessory Muscle Use, Tachypnea Gastrointestinal: Yes: WNL, Normal Bowel Sounds, Soft. No: Distention, Tenderness Genitourinary: Yes: WNL Edema: No Neurological: Yes: WNL, Alert, Oriented Psychiatric: Yes: WNL, Alert, Oriented Labs: CBC, BMP 10/29/17 07:10 10/29/17 07:10 - ....Imaging Cat Scan: Report Reviewed Problem List - Problems (1) Left hip pain Code(s): M25.552 - PAIN IN LEFT HIP (2) Afib Code(s): I48.91 - UNSPECIFIED ATRIAL FIBRILLATION Qualifiers: Atrial fibrillation type: persistent Qualified Code(s): I48.1 - Persistent atrial fibrillation (3) Anemia Code(s): D64.9 - ANEMIA, UNSPECIFIED Qualifiers: Anemia type: unspecified type Qualified Code(s): D64.9 - Anemia, unspecified (4) CAD (coronary artery disease) Code(s): I25.10 - ATHSCL HEART DISEASE OF [place] CORONARY ARTERY W/O ANG PCTRS Qualifiers: Circle vs. transplanted heart: [place] heart Associated angina: without angina (5) CHF (congestive heart failure), NYHA class III Code(s): I50.9 - HEART FAILURE, UNSPECIFIED Qualifiers: Congestive heart failure type: combined Congestive heart failure chronicity : acute on chronic Qualified Code(s): I50.43 - Acute on chronic combined systolic (congestive) and diastolic (congestive) heart failure (6) CKD (chronic kidney disease) Code(s): N18.9 - CHRONIC KIDNEY DISEASE, UNSPECIFIED Qualifiers: Chronic kidney disease stage: stage 4 (severe) Qualified Code(s): N18.4 - Chronic kidney disease, stage 4 (severe) (7) COPD (chronic obstructive pulmonary disease) Code(s): J44.9 - CHRONIC OBSTRUCTIVE PULMONARY DISEASE, UNSPECIFIED Qualifiers: COPD type: emphysema (8) HTN (hypertension) Code(s): I10 - ESSENTIAL (PRIMARY) HYPERTENSION Qualifiers: (9) Hyperlipidemia Code(s): E78.5 - HYPERLIPIDEMIA, UNSPECIFIED (10) Hypothyroidism Code(s): E03.9 - HYPOTHYROIDISM, UNSPECIFIED Qualifiers: Hypothyroidism type: unspecified Qualified Code(s): E03.9 - Hypothyroidism , unspecified (11) Pacemaker Code(s): Z95.0 - PRESENCE OF CARDIAC PACEMAKER (12) Pulmonary nodule Code(s): R91.1 - SOLITARY PULMONARY NODULE (13) Sick sinus syndrome Code(s): I49.5 - SICK SINUS SYNDROME Assessment/Plan (1) Left hip pain Assessment/Plan: pt still reports increased left posterior sacral- hip pain lumbar/thoracic/hip xray without acute findings pelvis/LLE CT ordered and reveals no acute findings bowel regimen tylenol/roxicodone prn PT- ambulated 100ft ortho consult appreciated Code(s): M25.552 - PAIN IN LEFT HIP (2) COPD (chronic obstructive pulmonary disease) Assessment/Plan: chronic, at baseline home dependent on O2 pulm consult appreciated Code(s): J44.9 - CHRONIC OBSTRUCTIVE PULMONARY DISEASE, UNSPECIFIED Qualifiers: COPD type: emphysema (3) CHF (congestive heart failure) Assessment/Plan: NYHA class 2, euvolemic does not appear to be in acute exacerbation congestive changes on chest xray- however better than prev admission continue lasix entresto restarted, discussed with nephrology cardiology following Code(s): I50.9 - HEART FAILURE, UNSPECIFIED Qualifiers: Heart failure type: combined systolic and diastolic Heart failure chronicity: chronic Qualified Code(s): I50.42 - Chronic combined systolic ( congestive) and diastolic (congestive) heart failure (4) Hypothyroidism Assessment/Plan: continue synthroid Code(s): E03.9 - HYPOTHYROIDISM, UNSPECIFIED Qualifiers: Hypothyroidism type: unspecified Qualified Code(s): E03.9 - Hypothyroidism , unspecified (5) CKD (chronic kidney disease) Assessment/Plan: mild bun elevation nephrology following monitor Code(s): N18.9 - CHRONIC KIDNEY DISEASE, UNSPECIFIED Qualifiers: Chronic kidney disease stage: stage 4 (severe) Qualified Code(s): N18.4 - Chronic kidney disease, stage 4 (severe) (6) Sick sinus syndrome Assessment/Plan: s/p PPM Code(s): I49.5 - SICK SINUS SYNDROME (7) CAD (coronary artery disease) Assessment/Plan: history of [place]/angina s/p PPM cardiology following Code(s): I25.10 - ATHSCL HEART DISEASE OF [place] CORONARY ARTERY W/O ANG PCTRS Qualifiers: [place] vs. transplanted heart: [place] heart Associated angina: without angina (8) Afib Assessment/Plan: rate controlled continue carvedilol, Asa CHADvasc score 5, no AC Code(s): I48.91 - UNSPECIFIED ATRIAL FIBRILLATION Qualifiers: Atrial fibrillation type: persistent Qualified Code(s): I48.1 - Persistent atrial fibrillation (9) Anemia Assessment/Plan: secondary to ckd h/h stable Code(s): D64.9 - ANEMIA, UNSPECIFIED Qualifiers: Anemia type: unspecified type Qualified Code(s): D64.9 - Anemia, unspecified (10) HTN (hypertension) Assessment/Plan: controlled continue carvedilol Code(s): I10 - ESSENTIAL (PRIMARY) HYPERTENSION Qualifiers: Hypertension type: essential hypertension Qualified Code(s): I10 - Essential (primary) hypertension (11) Hyperlipidemia Assessment/Plan: continue statin Code(s): E78.5 - HYPERLIPIDEMIA, UNSPECIFIED (12) Pulmonary nodule Assessment/Plan: RUL nodule Code(s): R91.1 - SOLITARY PULMONARY NODULE Dispo: Home with services, informed pt and family of plan for discharge if CT negative, pain management consult pending.
--- NOTE | 2017-10-29 13:56 | CONSULT ---
Consult - text type - Consultation Consultation Note: Renal Consult for CKD This is a 87 year old gentleman with PMhx of CKD Stage 4 with baseline Cr ~2, CAD, CHF, COPD, Hypertension who presented from home with complaints of SOB and hip pain and found to have Cr of 2.4. PMhx: as above Allergies: Thiopental Family hx: [place] Social Hx: NO T/A/D ROS: as per HPI Home Medications Medication Instructions Recorded Albuterol 0.083% Nebulizer Jaz 1 - 2 neb NEB QID PRN 08/30/17 [Ventolin 0.083% Nebulizer Soln -] Albuterol Sulfate Inhaler - 2 puff PO TID PRN 08/30/17 [Ventolin HFA Inhaler -] Aspirin [Aspirin EC] 81 mg PO DAILY 08/30/17 Febuxostat [Uloric -] 40 mg PO DAILY 08/30/17 Fluticasone Propionate [Flovent 110 mcg IH DAILY 08/30/17 Hfa] Levothyroxine [Synthroid -] 75 mcg PO DAILY 08/30/17 Tiotropium [place] [Spiriva] 1 inh PO DAILY 08/30/17 levETIRAcetam [Keppra -] 500 mg PO HS 08/30/17 Docusate Sodium [Colace -] 100 mg PO BID capsule 09/13/17 Ascorbic Acid [Vitamin C] 500 mg PO DAILY 10/27/17 Mirtazapine [Remeron -] 15 mg PO HS 10/27/17 Alprazolam [Xanax] 0.25 mg PO DAILY PRN 10/29/17 Atorvastatin Ca [Lipitor] 10 mg PO HS 10/29/17 Carvedilol 12.5 mg PO BID 10/29/17 Cholecalciferol (Vitamin D3) 2,000 units PO DAILY 10/29/17 [Vitamin D -] Cyanocobalamin Vit B-12 Inj. 1,000 mcg IM MONTHLY 10/29/17 [Redisol] Furosemide [Lasix] 20 mg PO DAILY 10/29/17 L.acidoph,Paracasei, B.lactis 1 each PO Q2D 10/29/17 [Probiotic] Levetiracetam [Keppra] 250 mg PO AM 10/29/17 Sacubitril/Valsartan [Entresto 24 1 each PO BID 10/29/17 mg-26 mg Tablet] Vital Signs Temperature 98 F 10/29/17 08:36 Pulse Rate 92 H 10/29/17 08:36 Respiratory Rate 18 10/29/17 08:36 Blood Pressure 132/75 10/29/17 08:36 O2 Sat by Pulse Oximetry (%) 100 10/29/17 08:00 Intake & Output 10/26/17 10/27/17 10/28/17 10/29/17 23:59 23:59 23:59 23:59 Intake Total 450 240 Balance 450 240 Weight 62.142 kg 62.823 kg NAD, awake and alert on NC O2 Dry MM, No JVD RRR, No M/R CTA (anterior examination) soft NT/ND no Le edema CBC, BMP 10/29/17 07:10 10/29/17 07:10 Current Medications Acetaminophen (Tylenol -) 650 mg PO Q6H PRN PRN Reason: PAIN LEVEL 1-5 Last Admin: 10/29/17 13:12 Dose: 650 mg Albuterol Sulfate (Ventolin 0.083% Nebulizer Soln -) 1 amp NEB Q6H PRN PRN Reason: sob Last Admin: 10/28/17 08:18 Dose: 1 amp Albuterol Sulfate (Ventolin Hfa Inhaler -) 2 puff IH Q4H PRN PRN Reason: sob Alprazolam (Xanax -) 0.25 mg PO DAILY PRN PRN Reason: ANXIETY Artificial Tears (Artificial Tears) 1 drop OU Q8H PRN PRN Reason: DRY EYES Ascorbic Acid (Vitamin C -) 500 mg PO DAILY [facility] Last Admin: 10/29/17 09:21 Dose: 500 mg Aspirin (Ecotrin -) 81 mg PO DAILY [facility] Last Admin: 10/29/17 09:21 Dose: 81 mg Atorvastatin Calcium (Lipitor -) 10 mg PO HS [facility] Carvedilol (Coreg -) 12.5 mg PO BID [facility] Docusate Sodium (Colace -) 100 mg PO BID [facility] Last Admin: 10/29/17 09:21 Dose: 100 mg Febuxostat (Uloric -) 40 mg PO DAILY [facility] Last Admin: 10/29/17 09:24 Dose: 40 mg [facility]ous [facility] -) [facility] Last Admin: 10/29/17 09:21 Dose: 325 mg Levetiracetam (Keppra -) 500 mg PO HS [facility] Last Admin: 10/28/17 21:36 Dose: 500 mg Levothyroxine Sodium (Synthroid -) 25 mcg PO ACBK [facility] Last Admin: 10/29/17 06:19 Dose: 25 mcg Lidocaine (Lidoderm Patch -) 1 patch TP DAILY [facility] Last Admin: 10/29/17 09:23 Dose: 1 patch Mirtazapine (Remeron -) 15 mg PO [facility] Last Admin: 10/28/17 21:36 Dose: 15 mg Miscellaneous (Lidoderm Patch Removal) 1 each MC DAILY@2200 [facility] Last Admin: 10/28/17 21:41 Dose: 1 each Mometasone Furoate (Asmanex 220mcg -) 1 puff IH [facility] Last Admin: 10/28/17 21:40 Dose: 1 puff Oxycodone HCl (Roxicodone -) 2.5 mg PO Q6H PRN PRN Reason: PAIN LEVEL 6-10 Last Admin: 10/29/17 09:22 Dose: 2.5 mg Polyethylene Glycol (Miralax (For Daily Use) -) 17 gm PO DAILY [facility] Last Admin: 10/29/17 09:23 Dose: 17 gm Sacubitril/Valsartan (Entresto 24 Mg-26 Mg Tablet) 1 tab PO BID [facility] Senna (Senna -) 2 tab PO HS [facility] Last Admin: 10/28/17 21:35 Dose: 2 tab Tiotropium [place] (Spiriva -) 1 puff IH DAILY [facility] Last Admin: 10/29/17 09:22 Dose: 1 puff 87 year old gentleman with PMhx of CKD Stage 4 with baseline Cr ~2, CAD, CHF, COPD, Hypertension who presented from home with complaints of SOB and hip pain and found to have Cr of 2.4 #CKD stage 4 rising BUN #CHF (evolemic at the present time) #Hypertension #HIP pain BUN/Cr slighly elevated compared to date of discharge however this can be due to expeted rise in Cr due to ARB in entresto that pt was restarted on as outpatient. no overt acidosis, hyperkalemia or volume overload at this time BUN has been trending up during the admission (no steroids or suspected GI bleed ) pt appears to have been on Lasix and not torsemide at home and likely the higher dose diuretics caused the increase in BUN Can restart Entresto as inpatient, would monitor BUN/Cr and electrolytes on a daily basis Continue work up for hip pain as per primary would avoid nsaids for pain control Thank you will follow Guicho Rayo DO
[2017-10-29] MEDS: ALPRAZolam 0.25 MG TABLET PO PRN (14:42)
[2017-10-29] MEDS: SACUBITRIL/VALSARTAN 24 MG-26 MG TABLET PO SCH ×2 (14:42→21:19)
--- NOTE | 2017-10-29 15:22 | PN ---
Progress Note (short form) - Note Progress Note: Pt seen and examined. He still c/o left hip pain, however he was able to ambulate down to the end of the machuca and back today with P.T. LLE is NVI Good ROM at left knee, ankle, foot, toes Doing well Rec P.T., DC planning, no orthopedic intervention needed at this time
[2017-10-29] MEDS ORDERED: PT OWN MED DRAWER 7, Y5N ONE (21:00)
[2017-10-29] MEDS: CARVEDILOL 12.5 MG TABLET (FP) PO SCH (21:19)
[2017-10-29] MEDS: MOMETASONE FUROATE 220 MCG/IH INHALER IH SCH (21:19)
[2017-10-29] MEDS: levETIRAcetam 500 MG TABLET (FP) PO SCH (21:19)
[2017-10-29] MEDS: SENNOSIDES 8.6MG TABLET (FP) PO SCH (21:19)
[2017-10-29] MEDS: MIRTAZAPINE 15 MG TABLET (FP) PO SCH (21:20)
[2017-10-29] MEDS: LIDOCAINE PATCH REMOVAL MC SCH (21:23)
[2017-10-29] MEDS ORDERED: ATORVASTATIN CA 10 MG TABLET (FP) PO SCH (22:00)
[2017-10-30] MEDS: ACETAMINOPHEN 325 MG TABLET (FP) PO PRN (00:32)
[2017-10-30] MEDS: LEVOTHYROXINE NA 25 MCG TABLET (FP) PO SCH (06:08)
[2017-10-30] MEDS: oxyCODONE HCL 5 MG TABLET PO PRN ×2 (06:08→13:37)
--- NOTE | 2017-10-30 07:59 | CONSULT ---
Consult Consult Specialty:: pain medicine Referred by:: sachi Reason for Consultation:: hip pain - History of Present Illness Chief Complaint: left hip pain History of Present Illness: This is a 87 year old gentleman with PMhx of CKD Stage 4 with baseline Cr ~2, CAD, CHF, COPD, Hypertension who presented from home with complaints of SOB and hip pain. He currently has hip pain with minimal back pain but all imaging studies of his hip are negative. Patients pain when standing and walking is 10/10 - Past Medical History Cardio/Vascular: Yes: AFIB, CAD, CHF, HTN, Hyperlipdemia, [place] Pulmonary: Yes: COPD Renal/: Yes: Renal Inusuff Endocrine: Yes: Hypothyroidism - Past Surgical History Past Surgical History: Yes: Permanent Pacemaker - Alcohol/Substance Use Hx Alcohol Use: No - Smoking History Smoking history: Never smoked Have you smoked in the past 12 months: No If you are a former smoker, when did you quit?: 40 Years ago Home Medications - Allergies Allergies/Adverse Reactions: Allergies Allergy/AdvReac Type Severity Reaction Status Date / Time thiopental Allergy Mild Verified 10/28/17 07:02 sodium pentothal Allergy Mild Uncoded 10/27/17 22:30 - Home Medications Home Medications: Ambulatory Orders Albuterol 0.083% Nebulizer Jaz [Ventolin 0.083% Nebulizer Soln -] 1 - 2 neb NEB QID PRN 08/30/17 Albuterol Sulfate Inhaler - [Ventolin HFA Inhaler -] 2 puff PO TID PRN 08/30/17 Aspirin [Aspirin EC] 81 mg PO DAILY 08/30/17 Febuxostat [Uloric -] 40 mg PO DAILY 08/30/17 Fluticasone Propionate [Flovent Hfa] 110 mcg IH DAILY 08/30/17 Levothyroxine [Synthroid -] 75 mcg PO DAILY 08/30/17 Tiotropium [place] [Spiriva] 1 inh PO DAILY 08/30/17 levETIRAcetam [Keppra -] 500 mg PO HS 08/30/17 Docusate Sodium [Colace -] 100 mg PO BID capsule 09/13/17 Ascorbic Acid [Vitamin C] 500 mg PO DAILY 10/27/17 Mirtazapine [Remeron -] 15 mg PO HS 10/27/17 Alprazolam [Xanax] 0.25 mg PO DAILY PRN 10/29/17 Atorvastatin Ca [Lipitor] 10 mg PO HS 10/29/17 Carvedilol 12.5 mg PO BID 10/29/17 Cholecalciferol (Vitamin D3) [Vitamin D -] 2,000 units PO DAILY 10/29/17 Cyanocobalamin Vit B-12 Inj. [Redisol] 1,000 mcg IM MONTHLY 10/29/17 Furosemide [Lasix] 20 mg PO DAILY 10/29/17 L.acidoph,Paracasei, B.lactis [Probiotic] 1 each PO Q2D 10/29/17 Levetiracetam [Keppra] 250 mg PO AM 10/29/17 Sacubitril/Valsartan [Entresto 24 mg-26 mg Tablet] 1 each PO BID 10/29/17 Physical Exam Vital Signs: Vital Signs Temperature 97.9 F 10/30/17 06:00 Pulse Rate 75 10/30/17 06:00 Respiratory Rate 20 10/30/17 06:00 Blood Pressure 124/71 10/30/17 06:00 O2 Sat by Pulse Oximetry (%) 100 10/29/17 21:00 Musculoskeletal: Yes: Back Pain Assessment/Plan Lumbar radiculopathy 1. Awaiting CT scan lumbar spine results 2. Will follow up after CT 3. Continue current pain meds
--- NOTE | 2017-10-30 09:02 | PN ---
Progress Note (short form) - Note Progress Note: Ortho Pt seen and examined. still c/o pain in LS spine and left leg + ttp, dec rom, nvi CT scan of LS spine pending a/p- f/u Ct scan pain management PT wbat will follow d/w Dr. Ordonez
[2017-10-30 09:11] LABS: BASO % 0.6 % (0-2.0); HEMATOCRIT 31.9 % (35.4-49); HEMOGLOBIN 10.9 GM/dL (11.7-16.9); LYMPH % 12.8 % (8-40); MCH 32.9 pg (25.7-33.7); MCHC 34.2 g/dl (32.0-35.9); MEAN CELL VOLUME 96.1 fl (80-96); MEAN PLT VOLUME 10.4 fl (7.5-11.1); MONO % 9.1 % (3.8-10.2); NEUT % 74.5 % (42.8-82.8); PLATELET COUNT 156 K/MM3 (134-434); RBC 3.32 M/mm3 (4.00-5.60); WHITE BLOOD COUNT 7.7 K/mm3 (4.0-10.0)
[2017-10-30] MEDS: LIDOCAINE 5% TOPICAL PATCH TP SCH (09:13)
[2017-10-30] MEDS: DOCUSATE SODIUM 100 MG CAPSULE (FP) PO SCH (09:13)
[2017-10-30] MEDS: ASCORBIC ACID 500 MG TABLET (FP) PO SCH (09:14)
[2017-10-30] MEDS: ALPRAZolam 0.25 MG TABLET PO PRN (09:14)
[2017-10-30] MEDS: ASPIRIN COATED 81 MG TABLET.EC PO SCH (09:14)
[2017-10-30] MEDS: POLYETHYLENE GLYCOL 3350 119 GM BTL PO SCH (09:20)
[2017-10-30] MEDS: SACUBITRIL/VALSARTAN 24 MG-26 MG TABLET PO SCH (09:20)
[2017-10-30] MEDS: CARVEDILOL 12.5 MG TABLET (FP) PO SCH (09:20)
[2017-10-30] MEDS: FERROUS SO4 325 MG TABLET (FP) PO SCH ×2 (09:21→17:32)
[2017-10-30] MEDS: FEBUXOSTAT 40 MG TAB PO SCH (09:22)
--- NOTE | 2017-10-30 09:41 | PN ---
Progress Note, Physician History of Present Illness: Continues to report persistence of left hip discomfort, denies any chest pain but continues to report persistence of dyspnea with minimal physical activity. As outlined in prior notes patient was deemed not an appropriate candidate for longterm A/C several years ago - Current Medication List Current Medications: Active Medications Acetaminophen (Tylenol -) 650 mg PO Q6H PRN PRN Reason: PAIN LEVEL 1-5 Last Admin: 10/30/17 00:32 Dose: 650 mg Albuterol Sulfate (Ventolin 0.083% Nebulizer Soln -) 1 amp NEB Q6H PRN PRN Reason: sob Last Admin: 10/28/17 08:18 Dose: 1 amp Albuterol Sulfate (Ventolin Hfa Inhaler -) 2 puff IH Q4H PRN PRN Reason: sob Last Admin: 10/30/17 09:23 Dose: 2 inh Alprazolam (Xanax -) 0.25 mg PO DAILY PRN PRN Reason: ANXIETY Last Admin: 10/30/17 09:14 Dose: 0.25 mg Artificial Tears (Artificial Tears) 1 drop OU Q8H PRN PRN Reason: DRY EYES Ascorbic Acid (Vitamin C -) 500 mg PO DAILY [facility] Last Admin: 10/30/17 09:14 Dose: 500 mg Aspirin (Ecotrin -) 81 mg PO DAILY [facility] Last Admin: 10/30/17 09:14 Dose: 81 mg Atorvastatin Calcium (Lipitor -) 10 mg PO HS [facility] Last Admin: 10/29/17 21:19 Dose: 10 mg Carvedilol (Coreg -) 12.5 mg PO BID [facility] Last Admin: 10/30/17 09:20 Dose: Not Given Docusate Sodium (Colace -) 100 mg PO BID [facility] Last Admin: 10/30/17 09:13 Dose: 100 mg Febuxostat (Uloric -) 40 mg PO DAILY [facility] Last Admin: 10/30/17 09:22 Dose: 40 mg Ferrous Sulfate (Feosol -) 325 mg PO BIDWM [facility] Last Admin: 10/30/17 09:21 Dose: Not Given Levetiracetam (Keppra -) 500 mg PO HS [facility] Last Admin: 10/29/17 21:19 Dose: 500 mg Levothyroxine Sodium (Synthroid -) 25 mcg PO ACBK [facility] Last Admin: 10/30/17 06:08 Dose: 25 mcg Lidocaine (Lidoderm Patch -) 1 patch TP DAILY [facility] Last Admin: 10/30/17 09:13 Dose: 1 patch Mirtazapine (Remeron -) 15 mg PO [facility] Last Admin: 10/29/17 21:20 Dose: 15 mg Miscellaneous (Lidoderm Patch Removal) 1 each MC DAILY@2200 [facility] Last Admin: 10/29/17 21:23 Dose: 1 each Mometasone Furoate (Asmanex 220mcg -) 1 puff IH [facility] Last Admin: 10/29/17 21:19 Dose: 1 puff Oxycodone HCl (Roxicodone -) 2.5 mg PO Q6H PRN PRN Reason: PAIN LEVEL 6-10 Last Admin: 10/30/17 06:08 Dose: 2.5 mg Polyethylene Glycol (Miralax (For Daily Use) -) 17 gm PO DAILY [facility] Last Admin: 10/30/17 09:20 Dose: 17 gm Sacubitril/Valsartan (Entresto 24 Mg-26 Mg Tablet) 1 tab PO BID [facility] Last Admin: 10/30/17 09:20 Dose: 1 tab Senna (Senna -) 2 tab PO HS [facility] Last Admin: 10/29/17 21:19 Dose: 2 tab Tiotropium [place] (Spiriva -) 1 puff IH DAILY [facility] Last Admin: 10/29/17 09:22 Dose: 1 puff - Objective Vital Signs: Vital Signs Temperature 97.9 F 10/30/17 06:00 Pulse Rate 75 10/30/17 06:00 Respiratory Rate 20 10/30/17 06:00 Blood Pressure 124/71 10/30/17 06:00 O2 Sat by Pulse Oximetry (%) 100 10/29/17 21:00 Constitutional: Yes: No Distress, Calm Neck: Yes: Supple Cardiovascular: Yes: Pulse Irregular, Murmur (2/6 SM) Respiratory: Yes: Regular, Diminished Gastrointestinal: Yes: Normal Bowel Sounds, Soft Edema: No Labs: CBC, BMP 10/30/17 06:30 - ....Imaging EKG: [facility] Problem List - Problems (1) CHF (congestive heart failure) Code(s): I50.9 - HEART FAILURE, UNSPECIFIED Qualifiers: Heart failure type: combined systolic and diastolic Heart failure chronicity: acute on chronic Qualified Code(s): I50.43 - Acute on chronic combined systolic (congestive) and diastolic (congestive) heart failure (2) Chronic hypoxemic respiratory failure Code(s): J96.11 - CHRONIC RESPIRATORY FAILURE WITH HYPOXIA (3) Left hip pain Code(s): M25.552 - PAIN IN LEFT HIP (4) Acute on chronic kidney failure Code(s): N17.9 - ACUTE KIDNEY FAILURE, UNSPECIFIED; N18.9 - CHRONIC KIDNEY DISEASE, UNSPECIFIED Qualifiers: Chronic kidney disease stage: stage 4 (severe) (5) Afib Code(s): I48.91 - UNSPECIFIED ATRIAL FIBRILLATION Qualifiers: Atrial fibrillation type: persistent Qualified Code(s): I48.1 - Persistent atrial fibrillation (6) Anemia Code(s): D64.9 - ANEMIA, UNSPECIFIED Qualifiers: Anemia type: unspecified type Qualified Code(s): D64.9 - Anemia, unspecified (7) CAD (coronary artery disease) Code(s): I25.10 - ATHSCL HEART DISEASE OF [place] CORONARY ARTERY W/O ANG PCTRS Qualifiers: [place] vs. transplanted heart: [place] heart Associated angina: without angina (8) CKD (chronic kidney disease) Code(s): N18.9 - CHRONIC KIDNEY DISEASE, UNSPECIFIED Qualifiers: Chronic kidney disease stage: stage 4 (severe) Qualified Code(s): N18.4 - Chronic kidney disease, stage 4 (severe) (9) COPD (chronic obstructive pulmonary disease) Code(s): J44.9 - CHRONIC OBSTRUCTIVE PULMONARY DISEASE, UNSPECIFIED Qualifiers: COPD type: emphysema (10) HTN (hypertension) Code(s): I10 - ESSENTIAL (PRIMARY) HYPERTENSION Qualifiers: Hypertension type: essential hypertension Qualified Code(s): I10 - Essential (primary) hypertension (11) Hyperlipidemia Code(s): E78.5 - HYPERLIPIDEMIA, UNSPECIFIED Qualifiers: Hyperlipidemia type: pure hypercholesterolemia Qualified Code(s): E78.00 - Pure hypercholesterolemia, unspecified; E78.0 - Pure hypercholesterolemia (12) Hypothyroidism Code(s): E03.9 - HYPOTHYROIDISM, UNSPECIFIED Qualifiers: Hypothyroidism type: unspecified Qualified Code(s): E03.9 - Hypothyroidism , unspecified (13) Ischemic cardiomyopathy Code(s): I25.5 - ISCHEMIC CARDIOMYOPATHY (14) Pacemaker Code(s): Z95.0 - PRESENCE OF CARDIAC PACEMAKER (15) Sick sinus syndrome Code(s): I49.5 - SICK SINUS SYNDROME Assessment/Plan Echocardiography dated 09/02/17 revealed moderate systolic LV dysfunction with LVEF of 40-45%, mild MS, MVP with moderate MR, moderate to severe TR with RVSP of 50 mmHg, bi-atrial dilatation 1. Left hip discomfort - lumbar radiculopathy 2. CAD post MS angina pectoris 3. Systolic/diastolic LV dysfunction with chronic class II NYHA classification LV failure, resolving 4. Persistent atrial fibrillation [id number] score of 5 on no A/C therapy 5. Sick sinus syndrome post [employer]-D 6. Hypertension history, tends to be hypotensive at baseline on medical therapy 7. Hypercholesterolemia 8. Hypothyroidism 9. COPD/pneumonia 10. CKD 11. Anemia/thrombocytopenia PLAN: 1. Continue Coreg 12.5 bid 2. Resume Entresto 24/26 bid with close monitoring of renal function, once renal function stabilizes unless it is absolutely contraindicated 3. Continue ASA 81 qd, although ideally should be A/C but high risk patient as deemed in the past, recurrent falls/thrombocytopenia 4. Continue Lipitor 10 qhs 5. Resume Demadex per renal 6. F/u lumbar CT scan, analgesia as needed, PT, WBAT
[2017-10-30 10:03] LABS: CHLORIDE 101 mmol/L (98-107); POTASSIUM 4.3 mmol/L (3.5-5.1); SODIUM 141 mmol/L (136-145)
[2017-10-30 10:19] LABS: ANION GAP 6 (8-16); BLOOD UREA NITROGEN 48 mg/dL (7-18); CALCIUM 8.5 mg/dL (8.5-10.1); CO2 34 mmol/L (21-32); GLUCOSE,RANDOM 81 mg/dL (74-106)
--- NOTE | 2017-10-30 10:38 | PN ---
Progress Note, Physician History of Present Illness: PULMONARY ALERT,FEELING BETTER,LESS DYSPNEIC,HIP PAIN IMPROVING - Current Medication List Current Medications: Active Medications Acetaminophen (Tylenol -) 650 mg PO Q6H PRN PRN Reason: PAIN LEVEL 1-5 Last Admin: 10/30/17 00:32 Dose: 650 mg Albuterol Sulfate (Ventolin 0.083% Nebulizer Soln -) 1 amp NEB Q6H PRN PRN Reason: sob Last Admin: 10/28/17 08:18 Dose: 1 amp Albuterol Sulfate (Ventolin Hfa Inhaler -) 2 puff IH Q4H PRN PRN Reason: sob Last Admin: 10/30/17 09:23 Dose: 2 inh Alprazolam (Xanax -) 0.25 mg PO DAILY PRN PRN Reason: ANXIETY Last Admin: 10/30/17 09:14 Dose: 0.25 mg Artificial Tears (Artificial Tears) 1 drop OU Q8H PRN PRN Reason: DRY EYES Ascorbic Acid (Vitamin C -) 500 mg PO DAILY [facility] Last Admin: 10/30/17 09:14 Dose: 500 mg Aspirin (Ecotrin -) 81 mg PO DAILY [facility] Last Admin: 10/30/17 09:14 Dose: 81 mg Atorvastatin Calcium (Lipitor -) 10 mg PO [facility] Last Admin: 10/29/17 21:19 Dose: 10 mg Carvedilol (Coreg -) 12.5 mg PO BID [facility] Last Admin: 10/30/17 09:20 Dose: Not Given Docusate Sodium (Colace -) 100 mg PO BID [facility] Last Admin: 10/30/17 09:13 Dose: 100 mg Febuxostat (Uloric -) 40 mg PO DAILY [facility] Last Admin: 10/30/17 09:22 Dose: 40 mg Ferrous Sulfate (Feosol -) 325 mg PO BIDWM [facility] Last Admin: 10/30/17 09:21 Dose: Not Given Levetiracetam (Keppra -) 500 mg PO HS [facility] Last Admin: 10/29/17 21:19 Dose: 500 mg Levothyroxine Sodium (Synthroid -) 25 mcg PO ACBK [facility] Last Admin: 10/30/17 06:08 Dose: 25 mcg Lidocaine (Lidoderm Patch -) 1 patch TP DAILY [facility] Last Admin: 10/30/17 09:13 Dose: 1 patch Mirtazapine (Remeron -) 15 mg PO [facility] Last Admin: 10/29/17 21:20 Dose: 15 mg Miscellaneous (Lidoderm Patch Removal) 1 each MC DAILY@2200 [facility] Last Admin: 10/29/17 21:23 Dose: 1 each Mometasone Furoate (Asmanex 220mcg -) 1 puff IH [facility] Last Admin: 10/29/17 21:19 Dose: 1 puff Oxycodone HCl (Roxicodone -) 2.5 mg PO Q6H PRN PRN Reason: PAIN LEVEL 6-10 Last Admin: 10/30/17 06:08 Dose: 2.5 mg Polyethylene Glycol (Miralax (For Daily Use) -) 17 gm PO DAILY [facility] Last Admin: 10/30/17 09:20 Dose: 17 gm Sacubitril/Valsartan (Entresto 24 Mg-26 Mg Tablet) 1 tab PO BID [facility] Last Admin: 10/30/17 09:20 Dose: 1 tab Senna (Senna -) 2 tab PO [facility] Last Admin: 10/29/17 21:19 Dose: 2 tab Tiotropium [place] (Spiriva -) 1 puff IH DAILY [facility] Last Admin: 10/29/17 09:22 Dose: 1 puff - Objective Vital Signs: Vital Signs Temperature 97.9 F 10/30/17 06:00 Pulse Rate 75 10/30/17 06:00 Respiratory Rate 20 10/30/17 06:00 Blood Pressure 124/71 10/30/17 06:00 O2 Sat by Pulse Oximetry (%) 100 10/29/17 21:00 Constitutional: Yes: Well Nourished, Calm Eyes: Yes: WNL HENT: Yes: WNL Neck: Yes: WNL Cardiovascular: Yes: Pulse Irregular, S1, S2 Respiratory: Yes: Diminished Gastrointestinal: Yes: Normal Bowel Sounds, Soft Extremities: Yes: WNL Edema: No Labs: CBC, BMP 10/30/17 06:30 10/30/17 06:30 Problem List - Problems (1) CHF (congestive heart failure) Code(s): I50.9 - HEART FAILURE, UNSPECIFIED Qualifiers: Heart failure type: combined systolic and diastolic Heart failure chronicity: acute on chronic Qualified Code(s): I50.43 - Acute on chronic combined systolic (congestive) and diastolic (congestive) heart failure (2) Hip pain, right Code(s): M25.551 - PAIN IN RIGHT HIP (3) Chronic hypoxemic respiratory failure Code(s): J96.11 - CHRONIC RESPIRATORY FAILURE WITH HYPOXIA (4) Acute on chronic kidney failure Code(s): N17.9 - ACUTE KIDNEY FAILURE, UNSPECIFIED; N18.9 - CHRONIC KIDNEY DISEASE, UNSPECIFIED Qualifiers: Chronic kidney disease stage: stage 4 (severe) (5) Afib Code(s): I48.91 - UNSPECIFIED ATRIAL FIBRILLATION Qualifiers: Atrial fibrillation type: persistent Qualified Code(s): I48.1 - Persistent atrial fibrillation (6) Anemia Code(s): D64.9 - ANEMIA, UNSPECIFIED Qualifiers: Anemia type: unspecified type Qualified Code(s): D64.9 - Anemia, unspecified (7) CAD (coronary artery disease) Code(s): I25.10 - ATHSCL HEART DISEASE OF [place] CORONARY ARTERY W/O ANG PCTRS Qualifiers: [place] vs. transplanted heart: [place] heart Associated angina: without angina (8) CHF (congestive heart failure), NYHA class III Code(s): I50.9 - HEART FAILURE, UNSPECIFIED Qualifiers: Congestive heart failure type: combined Congestive heart failure chronicity : acute on chronic Qualified Code(s): I50.43 - Acute on chronic combined systolic (congestive) and diastolic (congestive) heart failure (9) CKD (chronic kidney disease) Code(s): N18.9 - CHRONIC KIDNEY DISEASE, UNSPECIFIED Qualifiers: Chronic kidney disease stage: stage 4 (severe) Qualified Code(s): N18.4 - Chronic kidney disease, stage 4 (severe) (10) HTN (hypertension) Code(s): I10 - ESSENTIAL (PRIMARY) HYPERTENSION Qualifiers: Hypertension type: essential hypertension Qualified Code(s): I10 - Essential (primary) hypertension (11) Pacemaker Code(s): Z95.0 - PRESENCE OF CARDIAC PACEMAKER (12) Sick sinus syndrome Code(s): I49.5 - SICK SINUS SYNDROME Assessment/Plan IMP ACUTE ON CHRONIC CHF IMPROVING ASHD S/P OH ADVANCE COPD O2 DEPENDENT WITH CHRONIC HYPOXEMIC RESPIRATORY FAILURE AFIB SSS S/P PPM LEFT HIP PAIN CKD ANEMIA PLAN INHALED BRONCHODILATORS O2 MONITOR LYTES,RENAL FUNCTION STRICT I+OS ANALGESICS PT DR HINOJOSA Problem List - Problems (1) CHF (congestive heart failure) Code(s): I50.9 - HEART FAILURE, UNSPECIFIED Qualifiers: Heart failure type: combined systolic and diastolic Heart failure chronicity: acute on chronic Qualified Code(s): I50.43 - Acute on chronic combined systolic (congestive) and diastolic (congestive) heart failure (2) Hip pain, right Code(s): M25.551 - PAIN IN RIGHT HIP (3) Chronic hypoxemic respiratory failure Code(s): J96.11 - CHRONIC RESPIRATORY FAILURE WITH HYPOXIA (4) Acute on chronic kidney failure Code(s): N17.9 - ACUTE KIDNEY FAILURE, UNSPECIFIED; N18.9 - CHRONIC KIDNEY DISEASE, UNSPECIFIED (5) Afib Code(s): I48.91 - UNSPECIFIED ATRIAL FIBRILLATION Qualifiers: Atrial fibrillation type: persistent Qualified Code(s): I48.1 - Persistent atrial fibrillation (6) Anemia Code(s): D64.9 - ANEMIA, UNSPECIFIED Qualifiers: Anemia type: unspecified type Qualified Code(s): D64.9 - Anemia, unspecified (7) CAD (coronary artery disease) Code(s): I25.10 - ATHSCL HEART DISEASE OF [place] CORONARY ARTERY W/O ANG PCTRS Qualifiers: [place] vs. transplanted heart: [place] heart Associated angina: without angina (8) CHF (congestive heart failure), NYHA class III Code(s): I50.9 - HEART FAILURE, UNSPECIFIED Qualifiers: Congestive heart failure type: combined Congestive heart failure chronicity : acute on chronic Qualified Code(s): I50.43 - Acute on chronic combined systolic (congestive) and diastolic (congestive) heart failure (9) CKD (chronic kidney disease) Code(s): N18.9 - CHRONIC KIDNEY DISEASE, UNSPECIFIED Qualifiers: Chronic kidney disease stage: stage 4 (severe) Qualified Code(s): N18.4 - Chronic kidney disease, stage 4 (severe) (10) HTN (hypertension) Code(s): I10 - ESSENTIAL (PRIMARY) HYPERTENSION Qualifiers: (11) Pacemaker Code(s): Z95.0 - PRESENCE OF CARDIAC PACEMAKER (12) Sick sinus syndrome Code(s): I49.5 - SICK SINUS SYNDROME
--- NOTE | 2017-10-30 12:03 | PN ---
Progress Note (short form) - Note Progress Note: NEUROSURGERY CONSULT DICTATED H/O CAD s/p [place], Afib , Sick sinus syndrome s/p pacemaker, COPDon Home O2, Gout, recently discharged home after treated for COPD/CHF exacerbation presents with c /o L gluteal area pain x 1 week. 2 day h/o pain radiating to L lateral thigh. Some thigh numbness B. No B/B dysfunction. PE: General- unremarkable CV- Irreg; Chest- CTA B, L side PPM; Abd- benign; Ext- no sign of DVT CN- intact II-XII; Motor- 5/5 B UE/LE; Sensation- intact LT/PP; DTR- hyporeflexic B Back- L sciatic notch tenderness; mildly + SLR on L at [address] LS spine- L L4-5 foramenal disc protrusion with mild-moderate stenosis and L L4 root impingement; R L3-4 far lateral calcified disc bulge with mild R L3 root impingement; L5-S1 degenerative disc space narrowing and facet hypertrophy Probable acute L L4 radiculopathy from L L4-5 foramenal disc protrusion, no deficit associated Add neurontin trial for radiculopathy PT for modality, traction, and truncal stabilization Could consider EPSI if persistent pain, though would need to hold ASA No neurosurgical intervention indicated nor recommended
--- NOTE | 2017-10-30 13:44 | CONS ---
DATE OF CONSULTATION: DATE OF DICTATION: 10/30/2017 REQUESTING PHYSICIAN: Yousuf Madden M.D. CRIME SCENE TECHNICIAN: Ramu Flower M.D., Neurosurgery CHIEF COMPLAINT: Left-sided buttock pain and lumbar radiculopathy. HISTORY OF PRESENT ILLNESS: The patient is an 87-year-old right-handed male with a history of COPD (on home oxygen), peripheral pacemaker for sick sinus syndrome, atrial fibrillation, coronary artery disease/NV and gout, who was recently admitted for COPD exacerbation. He was at home undergoing some home physical therapy and had a visiting nurse at the time. He sat down wrong one day and complains of increasing left-sided buttock pain. The pain started radiating down to the left lateral thigh 1 to 2 days ago. He has no significant leg weakness, but does have numbness in his thighs at times. He has no bowel or bladder incontinence. He denies any history of back pain or sciatica. He never had any imaging studies done, nor has he been treated for any lower back problems. He denies other trauma or falls otherwise. PAST MEDICAL HISTORY: Significant for coronary artery disease, status post NV, atrial fibrillation, sick sinus syndrome, pacemaker, COPD, gout. CURRENT MEDICATIONS: Include Lidoderm patches, Tylenol, Entresto, Asmanex, Keppra, Remeron, Spiriva, Euloric, Xanax, albuterol, Coreg, Colace, MiraLAX, Senna, artificial tears, Lipitor, Feosol, Ecotrin, oxycodone, levothyroxine, and vitamin C. ALLERGIES: THIOPENTAL. SOCIAL HISTORY: He does not smoke any more. He drinks alcohol socially. He lives at home. He is retired. REVIEW OF SYSTEMS: Otherwise negative for other major constitutional, head and neck, cardiovascular, pulmonary, gastrointestinal, genitourinary, endocrinological, neurological or psychological problems except for the above. PHYSICAL EXAMINATION: Vitals: Temperature is 97.9, blood pressure 124/71, pulse rate 75, O2 saturation 100% on 2 L. HEENT: Examination shows him to be normocephalic, atraumatic, anicteric. Neck: Supple. Heart: Coronary examination demonstrated an irregular rhythm. There is a pacemaker in the left chest area. Respiratory: Lungs are clear bilaterally, except for decreased breath sounds at the bases. Abdomen: Benign. Extremities: Examination showed no sign of DVT. Neurologic: He is awake, alert and oriented x3. His son is at bedside. I also spoke to the other son by phone. Cranial nerve examination is intact II through XII. Motor examination shows 5/5 strength in the bilateral upper and lower extremities, without or atrophy. Sensory examination is intact to light touch and pinprick. Deep tendon reflexes are hyporeflexic throughout. There is no pathological long tract sign. Gait was not tested for safety reasons. Examination of his back showed left buttock/sciatic notch tenderness. He has mildly positive straight leg raise on the left side at 40 degrees. DIAGNOSTIC STUDIES: Laboratory examination showed white blood cell count 7.7, hemoglobin 10.9; platelet count 156,000. Serum sodium 141, potassium 4.3, BUN 48, creatinine 2.0. Urinalysis is negative. CT scan of the lumbar spine demonstrated multilevel degenerative disk disease, worse at L5-S1. There is marked degenerative disk space narrowing at L5-S1 with associated facet hypertrophy. There is a left L4-L5 foraminal disk protrusion with mild left L4 nerve root impingement. There is mild to moderate foraminal narrowing on the left. There is right greater than left facet hypertrophy, with a right far lateral disk protrusion with mild L3 nerve root impingement. There is mild lateral recess stenosis at L4-L5 and L5-S1. Pleural effusion is noted. IMPRESSION: 1. Left L4-L5 foraminal disk protrusion with acute left L4 radiculopathy. 2. Multilevel lumbar degenerative disk disease. 3. Coronary artery disease. 4. Atrial fibrillation/sick sinus syndrome with pacemaker. 5. Chronic obstructive pulmonary disease. 6. Chronic renal insufficiency. RECOMMENDATIONS: The patient presents with a 1-week history of acute onset of left-sided buttock pain. The pain has been radiating down his left lateral thigh for the past 1 or days. He has not experienced such symptoms previously. CT scan demonstrated mostly degenerative disease, with a left-sided L4-L5 disk protrusion, likely accounting for his symptomatology at this time. I took the liberty of putting him on gabapentin 100 mg 3 times daily as an adjust for treatment of his lumbar radiculopathy. He could also consider pain management injection. The patient has already been seen by the pain management physician, Dr. Sprague. Aspirin and any other anticoagulation will need to be held prior to the injection, obviously, with the consent of the treating order schedule clerk. Physical therapy should also be considered for truncal stabilization, traction and modality treatment. The above was discussed with the patient along with his son at the bedside, as well as another son over the phone. All questions were answered. The pros and cons of the treatment approaches were discussed. No neurosurgical intervention is indicated or recommended at this time. RAMU FLOWER M.D. [id number]
[2017-10-30] MEDS ORDERED: GABAPENTIN 100 MG CAPSULE (FP) PO SCH (14:00)
--- NOTE | 2017-10-30 14:35 | DS ---
Physical Examination Vital Signs: Vital Signs Temperature 97.5 F L 10/30/17 14:26 Pulse Rate 80 10/30/17 14:26 Respiratory Rate 20 10/30/17 14:26 Blood Pressure 123/68 10/30/17 14:26 O2 Sat by Pulse Oximetry (%) 100 10/29/17 21:00 Constitutional: Yes: Well Nourished, No Distress Cardiovascular: Yes: Pulse Irregular, Murmur. No: Tachycardia, Bruit Respiratory: Yes: WNL, Regular, CTA Bilaterally, Diminished, On Nasal O2. No: Accessory Muscle Use, SOB, Tachypnea, Wheezes Gastrointestinal: Yes: WNL, Normal Bowel Sounds, Soft. No: Distention, Tenderness Renal/: Yes: WNL Musculoskeletal: Yes: Back Pain Extremities: Yes: WNL Edema: No Neurological: Yes: WNL, Alert, Oriented Psychiatric: Yes: WNL, Alert, Oriented Labs: CBC, BMP 10/30/17 06:30 10/30/17 06:30 Discharge Summary Reason For Visit: CHF Current Active Problems CHF (congestive heart failure) (chronic) Chronic hypoxemic respiratory failure (chronic) Left hip pain (Acute) Hospital Course: is an 87 year old male who came in with complaints of worsening left sacral/hip pain. While here, chest xray showed congestion which when compared to previous, congestion has improved. Pt evaluated by cardiology and cleared for discharge from hospital. All xrays neg for any acute findings. CT LS spine- L L4-5 foramenal disc protrusion with mild-moderate stenosis and L L4 root impingement; R L3-4 far lateral calcified disc bulge with mild R L3 root impingement; L5-S1 degenerative disc space narrowing and facet hypertrophy Probable acute L L4 radiculopathy from L L4-5 foramenal disc protrusion, no deficit associated Yesterday, I witnessed pt get OOB independently and stand without issues. Pt ambulated 100ft with PT. Option of SNF was recommended to pt initially and pt and family has refused. Pt working well with PT now and can continue PT at home. Pt evaluated by Neurosurgery, no neurosurgical intervention indicated nor recommended. Gabapentin started. PT recommended at home. EPSI if persistent pain , which can be done outpt in office for which Aspirin needs to be held prior. Pt can continue gabapentin, roxicodone, tylenol and PT and f/u outpt as needed and directed. Pt evaluated by pain management, nephrology, cardiology, neurosurgery, orthopaedics who have cleared pt for discharge from hospital Plan of care and discharge discussed with pt and family. Condition: Good - Instructions Diet, Activity, Other Instructions: resume prev diet ambulate as tolerated continue home PT gabapentin, tylenol, and roxicodone for adequate pain control f/u as directed Referrals: Na Biggs MD [Staff Physician] - 1 Week Felix Sprague MD [Staff Physician] - 1 Week (pain management, steroid injection ) Ramu Mittal MD [Staff Physician] - (neurosurgery, if needed) Ruddy Rachel MD [Primary Care Provider] - 1 Week Disposition: [facility]/HOME HEALTH CARE - Home Medications Comprehensive Discharge Medication List: Ambulatory Orders Albuterol 0.083% Nebulizer Jaz [Ventolin 0.083% Nebulizer Soln -] 1 - 2 neb NEB QID PRN 08/30/17 Albuterol Sulfate Inhaler - [Ventolin HFA Inhaler -] 2 puff PO TID PRN 08/30/17 Aspirin [Aspirin EC] 81 mg PO DAILY 08/30/17 Febuxostat [Uloric -] 40 mg PO DAILY 08/30/17 Fluticasone Propionate [Flovent Hfa] 110 mcg IH DAILY 08/30/17 Levothyroxine [Synthroid -] 75 mcg PO DAILY 08/30/17 Tiotropium [place] [Spiriva] 1 inh PO DAILY 08/30/17 levETIRAcetam [Keppra -] 500 mg PO HS 08/30/17 Docusate Sodium [Colace -] 100 mg PO BID capsule 09/13/17 Ascorbic Acid [Vitamin C] 500 mg PO DAILY 10/27/17 Mirtazapine [Remeron -] 15 mg PO HS 10/27/17 Alprazolam [Xanax] 0.25 mg PO DAILY PRN 10/29/17 Atorvastatin Ca [Lipitor] 10 mg PO HS 10/29/17 Carvedilol 12.5 mg PO BID 10/29/17 Cholecalciferol (Vitamin D3) [Vitamin D -] 2,000 units PO DAILY 10/29/17 Cyanocobalamin Vit B-12 Inj. [Vitamin B12 Injection -] 1,000 mcg IM MONTHLY 02/08 Furosemide [Lasix] 20 mg PO DAILY 10/29/17 L.acidoph,Paracasei, B.lactis [Probiotic] 1 each PO Q2D 10/29/17 Levetiracetam [Keppra] 250 mg PO AM 10/29/17 Sacubitril/Valsartan [Entresto 24 mg-26 mg Tablet] 1 each PO BID 10/29/17 Acetaminophen [Tylenol .Regular Strength -] 650 mg PO Q6H PRN tablet 10/30/17 Gabapentin [Neurontin -] 100 mg PO TID #30 capsule 10/30/17 Sennosides [Senna -] 2 tab PO HS #30 tablet 10/30/17 oxyCODONE HCL [Roxicodone -] 2.5 mg PO Q6H #20 tablet MDD 20 10/30/17 oxyCODONE HCL [Roxicodone -] 2.5 mg PO Q6H PRN #28 tablet MDD 20 10/30/17
[2017-10-30 17:03] VITALS: PULSE 87; TEMP 97.8
[2017-10-30 17:32] VITALS: BP 101/74
== END 2017-10-30 17:52 | disposition home health service (06) ==
LOC: JER 10:15 → JERBED 13:46 → INTOOBSV 13:46 → J4W 10-28 03:45
PROVIDERS: ADMIT Internal Medicine; ATTEND Internal Medicine
PROC: 3E033NZ Introduction of Analgesics, Hypnotics, Sedatives into Peripheral Vein, Percutaneous Approach (ICD-10-PCS; principal; 2017-10-27)
PROC: 3E033GC Introduction of Other Therapeutic Substance into Peripheral Vein, Percutaneous Approach (ICD-10-PCS; 2017-10-27)
PROC: 3E0F7GC Introduction of Other Therapeutic Substance into Respiratory Tract, Via Natural or Artificial Opening (ICD-10-PCS; 2017-10-27)
DX: I50.43 Acute on chronic combined systolic (congestive) and diastolic (congestive) heart failure (principal); I12.9 Hypertensive chronic kidney disease with stage 1 through stage 4 chronic kidney disease, or unspecified chronic kidney disease; N18.4 Chronic kidney disease, stage 4 (severe); N17.9 Acute kidney failure, unspecified; I25.5 Ischemic cardiomyopathy; E86.0 Dehydration; I25.10 Atherosclerotic heart disease of native coronary artery without angina pectoris; I49.5 Sick sinus syndrome; E78.5 Hyperlipidemia, unspecified; J43.9 Emphysema, unspecified; Z99.81 Dependence on supplemental oxygen; Z99.89 Dependence on other enabling machines and devices; Z95.0 Presence of cardiac pacemaker; I25.2 Old myocardial infarction; Z85.820 Personal history of malignant melanoma of skin; G40.909 Epilepsy, unspecified, not intractable, without status epilepticus; E03.9 Hypothyroidism, unspecified; Z79.82 Long term (current) use of aspirin; M10.9 Gout, unspecified; D64.9 Anemia, unspecified; I48.1 Persistent atrial fibrillation; R91.1 Solitary pulmonary nodule; J96.11 Chronic respiratory failure with hypoxia; M54.5 Low back pain; M25.552 Pain in left hip; M25.551 Pain in right hip; M54.16 Radiculopathy, lumbar region; M51.36 Other intervertebral disc degeneration, lumbar region
CPT/HCPCS: 36415; 71045-TC-FY; 72070-TC-FY; 72110-TC-FY; 72131-TC; 72192-TC; 73502-TC-LT-FY; 73700-TC-RT; 80048; 80053; 81003; 82550; 82570; 83735; 83880; 84100; 84484; 84540; 85025; 93005; 93010; 94010; 94640; 96374; 96375; 96376; 97116-GP; 97161-GP; 99285-25; G0378; J0131; J7620